=== PATIENT | female | born 1945 | race Caucasian/White ===

== ENCOUNTER 2016-09-01 14:15 | Outpatient (CLI) | payer OTHER ==
[2016-06-13 18:00] VITALS: BMI 19.4
--- NOTE | 2016-09-01 17:07 | CT ---
EXAM: CT chest without contrast HISTORY: History of cough and abnormal chest x-ray COMPARISON: Chest x-ray 06/19/[address] chest 06/15/2016 TECHNIQUE: Serial axial images of the chest were obtained from the lung apices to the upper abdomen without contrast. These were viewed in multiple planes. FINDINGS: The thyroid is diffusely low in attenuation and enlarged The visualized vessels demonstr ate significant atherosclerotic disease without aneurysm or stenosis. Pulmonary arteries are enlarg ed The heart mildly enlarged without effusion. There are scattered nonenlarged mediastinal and alvaro r lymph nodes. There is no pneumothorax. There is scattered moderate emphysematous disease. There is airway thick ening and ground-glass consolidation noted in the right lower lobe. This has minimally worsened in comparison to prior exam. Minimal airway thickening is noted in the left lower lobe. There is no e ffusion identified. Airways are otherwise patent. There are old healed rib fracture is unchanged from prior. The osseous structures demonstrate worse asael compression deformity at T11 with stable T10 compression deformity. T7 and T8 compression defo rmities are stable. No discrete new compression fracture is identified. Old healed manubrial fractu re is identified. Soft tissues in the upper abdomen on this limited evaluation demonstrate an IVC fi lter with moderate atherosclerotic disease. IMPRESSION: 1. Worsening airway thickening and ground-glass consolidation in the right lower lobe when compared to prior exam may represent acute on chronic small airways inflammation/infection and concern for d eveloping pneumonia. 2. No change in emphysema with stable cardiomegaly and atherosclerotic disease. 3. Pulmonary arteries are enlarged suggestive of a component pulmonary channel hypertension. 4. The thyroid is diffusely enlarged. 5. Multiple compression fractures of the spine and old healed rib fractures and manubrium fracture are present with minimal change noted in the compression deformity at T11.
== END 2016-09-01 14:16 | disposition home or self-care (01) ==
LOC: RAD 14:15
PROVIDERS: ATTEND General Practice
DX: R93.8 Abnormal findings on diagnostic imaging of other specified body structures (principal)

== ENCOUNTER 2016-09-14 13:00 | Outpatient (CLI) ==
[2016-06-13 18:00] VITALS: BMI 19.4
[2016-09-14 13:56] LABS: BASOPHILS % (AUTO) 1.5 % (0.0-3.0); HEMOGLOBIN 7.1 g/dl (12.0-16.0); LYMPHOCYTES # (AUTO) 0.4 K/uL (0.60-3.4); LYMPHOCYTES % (AUTO) 19.9 (10.0-50.0); MEAN CORPUSCULAR HEMOGLOBIN 34.3 pg (27.0-31.0); MONOCYTES # (AUTO) 0.1 K/uL (0.4-2.0); NEUTROPHILS # (AUTO) 1.5 K/ul (2.0-6.9); NEUTROPHILS % (AUTO) 73.6; PLATELET COUNT 113 10^3/uL (140-440); RED BLOOD COUNT 2.07 10^6/ul (4.20-5.40); WHITE BLOOD COUNT 2.01 K/ul (4.6-10.2)
--- NOTE | 2016-09-14 13:57 | DI ---
EXAM: Chest two view, frontal and lateral views. HISTORY: Bronchitis. COMPARISON: 09/01/2016. FINDINGS: The heart size is enlarged. Atherosclerotic calcifications present. There is no pulmona ry vascular congestion. The lungs are clear with improved aeration at the lung bases. No pleural e ffusion or pneumothorax is seen. No acute osseous abnormality identified. Old right-sided rib frac tures noted. Multilevel thoracic spine vertebral compression deformities noted. IMPRESSION: No acute cardiopulmonary process.
--- NOTE | 2016-09-14 14:00 | DI ---
EXAM: Radiographs, left hip HISTORY: Left hip pain. COMPARISON: Pelvic CT 06/13/2016. Radiograph 03/22/2015. TECHNIQUE: Two views. FINDINGS: Intramedullary nail present in the left femur. Hardware appears intact. No acute fractu re or dislocation identified. Joint spaces are maintained. Extensive atherosclerotic calcification s are present. IMPRESSION: No acute abnormality of the left hip..
[2016-09-14 14:08] LABS: HEMATOCRIT 20.9 % (37.0-47.0)
[2016-09-14 14:28] LABS: ALANINE AMINOTRANSFERASE < 6 U/L (12-78); ALBUMIN 3.6 g/dL (3.4-5.0); ALBUMIN/GLOBULIN RATIO 1.09; ALKALINE PHOSPHATASE 100 U/L (53-141); ANION GAP 14.4; ASPARTATE AMINO TRANSFERASE 11 U/L (15-37); BILIRUBIN,TOTAL 1.02 mg/dL (0.00-1.20); BLOOD UREA NITROGEN 10 mg/dL (7-18); BUN/CREATININE RATIO 15.62; CALCIUM 9.6 mg/dL (8.2-10.2); CARBON DIOXIDE 23 mmol/L (23-31); CHLORIDE 102 mmol/L (98-107); CHOL/HDL RATIO 3.1 (4.5-5.5); CHOLESTEROL 159 mg/dL (0-200); CREATININE 0.64 mg/dL (0.60-1.30); GLUCOSE 129 mg/dL (82-115); HDL CHOLESTEROL 52 mg/dL (35-80); POTASSIUM 4.4 mmol/L (3.5-5.10); SODIUM 135 mmol/L (136-145); TOTAL PROTEIN 6.9 g/dL (5.8-8.1); TRIGLYCERIDES 74 mg/dL (30-150); VLDL CHOLESTEROL 15 mg/dL (2-30)
== END 2016-09-14 13:01 | disposition home or self-care (01) ==
LOC: RAD 13:00
PROVIDERS: ATTEND Emergency Medicine
DX: E78.5 Hyperlipidemia, unspecified (principal); I10 Essential (primary) hypertension; K21.9 Gastro-esophageal reflux disease without esophagitis; J40 Bronchitis, not specified as acute or chronic; M25.552 Pain in left hip
CPT/HCPCS: 36415; 80053; 80061; 84443; 85025

== ENCOUNTER 2016-09-27 14:58 | Outpatient (CLI) | payer OTHER ==
[2016-06-13 18:00] VITALS: BMI 19.4
[2016-09-27 15:24] LABS: IMMATURE RETIC FRACTION 18.1; RETICULOCYTE % 4.79 %
[2016-09-27 15:25] LABS: BILIRUBIN,URINE Negative (NEGATIVE); KETONES,URINE Negative (NEGATIVE); LEUKOCYTE ESTERASE ,URINE 1+ (NEGATIVE); NITRITE,URINE Positive (NEGATIVE); PH,URINE 8.5 (5-9); PROTEIN,URINE Negative (NEGATIVE); URINE, BLOOD Trace-intact (NEGATIVE)
[2016-09-27 15:28] LABS: ADD URINE MICROSCOPIC YES
[2016-09-27 15:29] LABS: BACTERIA,URINE 3+ (NOT PRESENT)
[2016-09-27 15:57] LABS: FERRITIN 163.67 ng/mL (4.63-204.00)
== END 2016-09-27 14:59 | disposition home or self-care (01) ==
LOC: LAB 14:58
PROVIDERS: ATTEND Emergency Medicine
DX: R35.0 Frequency of micturition (principal); D50.0 Iron deficiency anemia secondary to blood loss (chronic); I10 Essential (primary) hypertension
CPT/HCPCS: 36415; 81001; 82607; 82728; 83540; 83550; 84466; 85045; 87086; 87186

== ENCOUNTER 2016-10-10 14:29 | Outpatient (CLI) ==
[2016-06-13 18:00] VITALS: BMI 19.4
== END 2016-10-10 14:30 | disposition home or self-care (01) ==
LOC: LAB 14:29
PROVIDERS: ATTEND Nurse Practitioner Family
DX: N39.0 Urinary tract infection, site not specified (principal)
CPT/HCPCS: 81001

== ENCOUNTER 2016-10-11 09:14 | Outpatient (CLI) ==
[2016-06-13 18:00] VITALS: BMI 19.4
[2016-10-11 09:28] LABS: BILIRUBIN,URINE Negative (NEGATIVE); KETONES,URINE Negative (NEGATIVE); LEUKOCYTE ESTERASE ,URINE 1+ (NEGATIVE); NITRITE,URINE Negative (NEGATIVE); PROTEIN,URINE Negative (NEGATIVE); URINE, BLOOD Trace-intact (NEGATIVE)
[2016-10-11 10:01] LABS: ADD URINE MICROSCOPIC YES
[2016-10-11 10:03] LABS: BACTERIA,URINE TRACE (NOT PRESENT)
== END 2016-10-11 09:15 | disposition home or self-care (01) ==
LOC: LAB 09:14
PROVIDERS: ATTEND Nurse Practitioner Family
DX: N39.0 Urinary tract infection, site not specified (principal)
CPT/HCPCS: 81001

== ENCOUNTER 2016-10-12 17:09 | Outpatient (CLI) ==
[2016-10-13 14:22] VITALS: BMI 18.8
== END 2016-10-12 17:10 ==
LOC: AMBL 17:09
PROVIDERS: ATTEND Emergency Medicine
DX: R06.2 Wheezing (principal); R09.02 Hypoxemia; J44.9 Chronic obstructive pulmonary disease, unspecified; Z99.81 Dependence on supplemental oxygen

== ENCOUNTER 2016-10-13 05:22 | Outpatient (CLI) ==
[2016-10-13 14:22] VITALS: BMI 18.8
== END 2016-10-13 05:23 ==
LOC: AMBL 05:22
PROVIDERS: ATTEND Internal Medicine Geriatric Medicine
DX: R06.02 Shortness of breath (principal); F41.9 Anxiety disorder, unspecified; R00.0 Tachycardia, unspecified; J44.9 Chronic obstructive pulmonary disease, unspecified; I10 Essential (primary) hypertension; Z99.81 Dependence on supplemental oxygen

== ENCOUNTER 2016-10-13 05:32 | Inpatient (IN) | payer OTHER ==
--- NOTE | 2016-10-13 06:21 | ED.PDOC ---
General Stated Complaint: Patient is a 71 year old female who comes to the ER BY ambulance with after her oxyugen tubbing was shortened she cannot reach everything while using her walker. She also thinks that her oxygen fell off at night and felt short of breath hence called 911. Time Seen by Physician: 06:18 Mode of Arrival: Ambulance Information Source: Patient Exam Limitations: No limitations Nursing and Triage Documentation Reviewed and Agree: Yes <SADE LORENZ - Last Filed: 10/13/16 07:23> <HENRIQUE FOLEY - Last Filed: 10/13/16 14:34> ED Provider: Dr. HENRIQUE FOLEY (SADE LORENZ) (HENRIQUE FOLEY) Chief Complaint: Shortness of Air Review of Systems - Review Of Systems Constitutional: Reports: No symptoms Respiratory: Reports: Cough, Short of air, Wheezing Cardiac: Reports: No symptoms Neurological: Reports: Anxiety All Other Systems: Reviewed and Negative <SADE LORENZ - Last Filed: 10/13/16 07:23> Past Medical History - Past Medical History Previously Healthy: No Endocrine: Reports: None Cardiovascular: Reports: CAD, Hypertension, A-Fib, DVT (bilateral- left leg improved quickly, right leg swollen until last week of February 2016) Respiratory: Reports: COPD, Pneumonia Hematological: Reports: None Gastrointestinal: Reports: GERD, Other (BOWEL RESECTION 12/25/15, IVC filter) Genitourinary: Reports: None Neuro/Psych: Reports: Anxiety Musculoskeletal: Reports: Other (T 11-12 COMPRESSION FX) Cancer: Reports: None Last Menstrual Period: post menopausal Other Pertinent Past Medical History: POST OP SEPSIS WITH WOUND VAC.has IVC umbrella emilia - Surgical History General Surgical History: Reports: Orthopedic, Back Surgery (T 11-12 COMPRESSION FX,), Other (bowel surgery with post op infection and wound vac( removed end of february 2016)), Unknown - Family History Family History: Reports: Unknown - Social History Smoking Status: Former smoker Hx Substance Use: No Alcohol Screening: None - Immunizations Tetanus Shot up to Date: No (pt is unsure when had last one) <SADE LORENZ - Last Filed: 10/13/16 07:23> Physical Exam - Physical Exam Appearance: Ill-appearing, Thin Ill-appearing: Moderate Neck: Supple Respiratory: Breath sounds diminished, Wheezes Cardiovascular: Tachycardia GI/: Soft Musculoskeletal: Normal strength, ROM intact, No edema, No calf tenderness Skin: Warm, Dry, Normal color Neurological: Sensation intact Psychiatric: Anxious <SADE LORENZ - Last Filed: 10/13/16 07:23> Interpretation - Radiology Interpretation Radiology Interpretation By: Radiologist Radiology Results: No acute changes Exam Interpreted: Portable CXR Xray Comments: No acute process - Adult Educator Time of Adult Educator Interpretation: 06:48 - EKG Interpretation Rate: Normal Rhythm: Sinus Ectopy: None ST Segment: Normal Interpretation: AV disassociagtion Acceleraqted Junctional rhythm <SADE LORENZ - Last Filed: 10/13/16 07:23> Re-Evaluation - Re-Evaluation Time of Re-Evaluation: 07:05 Status: Unchanged Vital Signs Stable: Yes Appearance: NAD (Visited briefly; NAD, speaking full sentences) Skin: Warm and Dry Neuro: Alert and Oriented X3 <HENRIQUE FOLEY - Last Filed: 10/13/16 14:34> Physician Notification - Case Discussed Endorsed To/Discussed With: Dr Foley Time of Discussion: 07:07 <SADE LORENZ - Last Filed: 10/13/16 07:23> - Case Discussed Physician Notified: Dr. Reyes Time of Notification: 08:35 (Anemia W/U; T&C 2 U; possible transfer) Physician Notified: Dr. Andrew/Hospitalist [facility] Time of Notification: 10:40 (Declined tranasfer) <HENRIQUE FOLEY - Last Filed: 10/13/16 14:34> Critical Care Note - Critical Care Note Total Time (mins): 45 <HENRIQUE FOLEY - Last Filed: 10/13/16 14:34> Course - Course Hematology/Chemistry: 10/13/16 06:40 10/13/16 06:40 <SADE LORENZ - Last Filed: 10/13/16 07:23> - Course Hematology/Chemistry: 10/13/16 06:40 10/13/16 06:40 <HENRIQUE FOLEY - Last Filed: 10/13/16 14:34> - Course Orders, Labs, Meds: Lab Review 10/13/16 10/13/16 10/13/16 06:38 06:40 06:43 WBC 2.58 L RBC 1.71 L Hgb 6.0 L Hct 17.8 L* MCV 104.1 H MCH 35.1 H MCHC 33.7 RDW Coeff of Maribeth 16.2 H Plt Count 44 L Neut % (Auto) Dental Manager Reticulocyte % (Auto) 2.87 Neutrophils % (Manual) 34.0 L Band Neutrophils % 3.0 Lymphocytes % (Manual) 34.0 Monocytes % (Manual) 5.0 Metamyelocytes % 3.0 H Myelocytes % 19.0 H Promyelocytes % 2.0 H Absolute Retic 0.0497 Retic Hgb Equivalent 35.4 Puncture Site R radial O2 Saturation 97.0 ABG pH 7.451 H ABG pCO2 29.7 L ABG pO2 81.0 L ABG HCO3 20.7 L ABG Total CO2 22 ABG Base Excess -3 L Chris Test + O2 Delivery Device Nc Oxygen Liter Flow 2.00 FiO2 % 28.0 Sodium 134 L Potassium 3.7 Chloride 103 Carbon Dioxide 23 Anion Gap 11.7 BUN 4 L Creatinine 0.52 L Estimated GFR (MDRD) 116.00 BUN/Creatinine Ratio 7.69 Glucose 102 Lactic Acid 11.3 Calcium 8.6 Iron 43 L TIBC 260 % Saturation 17 Unsat Iron Binding 217 Ferritin 274.58 H Total Bilirubin 1.19 AST 7 L ALT < 6 L Alkaline Phosphatase 90 Total Protein 6.1 Albumin 3.5 Globulin 2.6 Albumin/Globulin Ratio 1.35 Vitamin B12 > 2000 H Folate 8.3 Procalcitonin < 0.05 Stl Occult Blood (IFOB) Stool Occult Blood #2 Stool Occult Blood #3 Blood Type Antibody Screen Crossmatch ([facility]) 10/13/16 10/13/16 08:45 10:00 WBC RBC Hgb Hct MCV MCH MCHC RDW Coeff of Maribeth Plt Count Neut % (Auto) Reticulocyte % (Auto) Neutrophils % (Manual) Band Neutrophils % Lymphocytes % (Manual) Monocytes % (Manual) Metamyelocytes % Myelocytes % Promyelocytes % Absolute Retic Retic Hgb Equivalent Puncture Site O2 Saturation ABG pH ABG pCO2 ABG pO2 ABG HCO3 ABG Total CO2 ABG Base Excess Chris Test O2 Delivery Device Oxygen Liter Flow FiO2 % Sodium Potassium Chloride Carbon Dioxide Anion Gap BUN Creatinine Estimated GFR (MDRD) BUN/Creatinine Ratio Glucose Lactic Acid Calcium Iron TIBC % Saturation Unsat Iron Binding Ferritin Total Bilirubin AST ALT Alkaline Phosphatase Total Protein Albumin Globulin Albumin/Globulin Ratio Vitamin B12 Folate Procalcitonin Stl Occult Blood (IFOB) Negative Stool Occult Blood #2 No specimen received Stool Occult Blood #3 No specimen received Blood Type A POSITIVE Antibody Screen Negative Crossmatch ([facility]) See Detail Orders Category Date Time Status ADMIT PATIENT INPATIENT .TO [facility] (MONITORED BED) ADMISSION 10/13/16 10: 53 Active ABG DRAW REQUEST Stat CARDIO 10/13/16 06:38 Completed EKG-(ED ONLY) Stat CARDIO 10/13/16 06:38 Completed NEBULIZER TREATMENT Stat CARDIO 10/13/16 06:38 Completed OXYGEN Routine CARDIO 10/13/16 10:54 Active ACTIVITY .BR with BRP CARE 10/13/16 10:53 Active ACTIVITY .Complete BR CARE 10/13/16 10:53 Active INTAKE & OUTPUT Q8HR CARE 10/13/16 10:53 Active IV ACCESS ONCE CARE 10/13/16 06:16 Active ORDER H&H 1HR POST TRANSFUSION ONCE CARE 10/13/16 10:50 Active PRBC LEUKOREDUCED ONCE CARE 10/13/16 10:50 Active TELEMETRY MONITORING TELE CARE 10/13/16 10:57 Active VITAL SIGNS Q4HR CARE 10/13/16 10:53 Active REGULAR DIET DIETARY 10/13/16 Lunch Ordered ED APPLY O2 .ONCE EMERGENCY 10/13/16 06:16 Active ED RAIMANN MACHINE OPERATOR APPLIED .ONCE EMERGENCY 10/13/16 06:16 Active ED VITAL SIGNS EMERGENCY 10/13/16 06:16 Active ABG Stat LAB 10/13/16 06:38 Completed BLOOD CULTURE Stat LAB 10/13/16 06:40 Received CBC W/ AUTO DIFF DAILY@0600 LAB 10/14/16 06:00 Ordered CBC W/ AUTO DIFF DAILY@0600 LAB 10/15/16 06:00 Ordered CBC W/ AUTO DIFF DAILY@0600 LAB 10/16/16 06:00 Ordered CBC W/ AUTO DIFF DAILY@0600 LAB 10/17/16 06:00 Ordered CBC W/ AUTO DIFF DAILY@0600 LAB 10/18/16 06:00 Ordered CBC W/ AUTO DIFF DAILY@0600 LAB 10/19/16 06:00 Ordered CBC W/ AUTO DIFF DAILY@0600 LAB 10/20/16 06:00 Ordered CBC W/ AUTO DIFF DAILY@0600 LAB 10/21/16 06:00 Ordered CBC W/ AUTO DIFF DAILY@0600 LAB 10/22/16 06:00 Ordered CBC W/ AUTO DIFF DAILY@0600 LAB 10/23/16 06:00 Ordered CBC W/ AUTO DIFF DAILY@0600 LAB 10/24/16 06:00 Ordered CBC W/ AUTO DIFF DAILY@0600 LAB 10/25/16 06:00 Ordered CBC W/ AUTO DIFF DAILY@0600 LAB 10/26/16 06:00 Ordered CBC W/ AUTO DIFF DAILY@0600 LAB 10/27/16 06:00 Ordered CBC W/ AUTO DIFF DAILY@0600 LAB 10/28/16 06:00 Ordered CBC W/ AUTO DIFF DAILY@0600 LAB 10/29/16 06:00 Ordered CBC W/ AUTO DIFF DAILY@0600 LAB 10/30/16 06:00 Ordered CBC W/ AUTO DIFF DAILY@0600 LAB 10/31/16 06:00 Ordered CBC W/ AUTO DIFF DAILY@0600 LAB 11/01/16 06:00 Ordered CBC W/ AUTO DIFF DAILY@0600 LAB 11/02/16 06:00 Ordered CBC W/ AUTO DIFF Stat LAB 10/13/16 06:40 Completed COMPREHENSIVE METABOLIC PANEL DAILY@0600 LAB 10/14/16 06:00 Ordered COMPREHENSIVE METABOLIC PANEL DAILY@0600 LAB 10/15/16 06:00 Ordered COMPREHENSIVE METABOLIC PANEL DAILY@0600 LAB 10/16/16 06:00 Ordered COMPREHENSIVE METABOLIC PANEL DAILY@0600 LAB 10/17/16 06:00 Ordered COMPREHENSIVE METABOLIC PANEL DAILY@0600 LAB 10/18/16 06:00 Ordered COMPREHENSIVE METABOLIC PANEL DAILY@0600 LAB 10/19/16 06:00 Ordered COMPREHENSIVE METABOLIC PANEL DAILY@0600 LAB 10/20/16 06:00 Ordered COMPREHENSIVE METABOLIC PANEL DAILY@0600 LAB 10/21/16 06:00 Ordered COMPREHENSIVE METABOLIC PANEL DAILY@0600 LAB 10/22/16 06:00 Ordered COMPREHENSIVE METABOLIC PANEL DAILY@0600 LAB 10/23/16 06:00 Ordered COMPREHENSIVE METABOLIC PANEL DAILY@0600 LAB 10/24/16 06:00 Ordered COMPREHENSIVE METABOLIC PANEL DAILY@0600 LAB 10/25/16 06:00 Ordered COMPREHENSIVE METABOLIC PANEL DAILY@0600 LAB 10/26/16 06:00 Ordered COMPREHENSIVE METABOLIC PANEL DAILY@0600 LAB 10/27/16 06:00 Ordered COMPREHENSIVE METABOLIC PANEL DAILY@0600 LAB 10/28/16 06:00 Ordered COMPREHENSIVE METABOLIC PANEL DAILY@0600 LAB 10/29/16 06:00 Ordered COMPREHENSIVE METABOLIC PANEL DAILY@0600 LAB 10/30/16 06:00 Ordered COMPREHENSIVE METABOLIC PANEL DAILY@0600 LAB 10/31/16 06:00 Ordered COMPREHENSIVE METABOLIC PANEL DAILY@0600 LAB 11/01/16 06:00 Ordered COMPREHENSIVE METABOLIC PANEL DAILY@0600 LAB 11/02/16 06:00 Ordered COMPREHENSIVE METABOLIC PANEL Stat LAB 10/13/16 06:40 Completed FERRITIN Routine LAB 10/13/16 06:43 Completed FOLATE Routine LAB 10/13/16 06:43 Completed IRON AND TIBC Routine LAB 10/13/16 06:43 Completed LACTIC ACID Stat LAB 10/13/16 06:40 Completed MANUAL DIFFERENTIAL Stat LAB 10/13/16 06:40 Completed OCCULT BLOOD, STOOL Stat LAB 10/13/16 08:45 Completed PROCALCITONIN Stat LAB 10/13/16 06:40 Completed Packed Red Blood Cells [PACKED CELLS] Stat LAB 10/13/16 10:00 Results RETIC COUNT Routine LAB 10/13/16 06:43 Completed TRANSFERRIN Routine LAB 10/13/16 06:43 Received TYPE AND SCREEN Stat LAB 10/13/16 10:00 Results VITAMIN B12 Routine LAB 10/13/16 06:43 Completed Acetaminophen [Tylenol] MEDS 10/13/16 11:00 Active 650 mg PO Q4HR PRN Albuterol Sulfate 0.083% Neb [Albuterol 0.083% Neb] MEDS 10/13/16 11:00 Active 1 vial NEB RTQ8H PRN Alendronate Sodium [Fosamax] MEDS 10/14/16 06:30 Active 70 mg PO Sa@0630 Aspirin [Aspirin EC] MEDS 10/14/16 08:00 Active 81 mg PO DAILYWM Atorvastatin Calcium [Lipitor] MEDS 10/13/16 11:00 Active 10 mg PO DAILY Bisacodyl [Dulcolax] MEDS 10/13/16 11:00 Active 10 mg RC DAILY PRN Budesonide/Formoterol Fumarate [Symbicort 160-4.5 Mcg MEDS 10/13/16 21:00 Active Inhaler] 2 puff IH BID Clonazepam [Klonopin] MEDS 10/13/16 11:30 Active 0.5 mg PO BID Furosemide [Lasix] MEDS 10/13/16 10:53 Discontinued 40 mg IVP ONCE STA Hydrocodone Bit/Acetaminophen [[place] 5-325] MEDS 10/13/16 11:07 Active 1 tab PO Q6HR PRN Ipratropium/Albuterol Neb [Duoneb] MEDS 10/13/16 06:40 Discontinued 1 vial NEB .STK-MED ONE Ipratropium/Albuterol Neb [Duoneb] MEDS 10/13/16 06:38 Discontinued 1 vial NEB ONCE STA Magnesium Hydroxide [Milk of Magnesia] MEDS 10/13/16 11:07 Active 30 ml PO DAILY PRN Methylprednisolone Sod Succ/Pf [Solu-Medrol 125 mg] MEDS 10/13/16 06:29 Discontinued 125 mg IVP ONCE STA Metoprolol Tartrate [Lopressor] MEDS 10/13/16 11:30 Active 25 mg PO BID Sodium Chloride 0.9% [Sodium Chloride] 1,000 ml MEDS 10/13/16 11:00 Active IV 75 mls/hr RESUSCITATION STATUS Routine OTHERS 10/13/16 10:53 Ordered CHEST, 1V AP ONLY Stat RADS 10/13/16 06:[address] ABDOMEN/PELVIS WO CONTRAST Stat RADS 10/13/16 08:33 Completed Medications Generic Name Dose Route Start Last Admin Trade Name Freq PRN Reason Stop Dose Admin Acetaminophen 650 mg 10/13/16 11:00 10/13/16 12:30 Tylenol PO 650 mg Q4HR PRN Administration Mild Pain Acetaminophen/Hydrocodone Bitart 1 tab 10/13/16 11:07 [place] 5-325 PO Q6HR PRN Severe Pain Albuterol Sulfate 1 vial 10/13/16 11:00 Albuterol 0.083% Neb NEB RTQ8H PRN Asthma Alendronate Sodium 70 mg 10/14/16 06:30 Fosamax PO Sa@0630 SMOOTH Aspirin 81 mg 10/14/16 08:00 Aspirin Ec PO DAILYWM SMOOTH Atorvastatin Calcium 10 mg 10/13/16 11:00 Lipitor PO DAILY SMOOTH Bisacodyl 10 mg 10/13/16 11:00 Dulcolax RC DAILY PRN CONSTIPATION Budesonide/Formoterol Fumarate 2 puff 10/13/16 21:00 Symbicort 160-4.5 Mcg Inhaler IH BID SMOOTH Clonazepam 0.5 mg 10/13/16 11:30 Klonopin PO BID SMOOTH Cyclobenzaprine HCl 5 mg 10/13/16 11:41 Flexeril PO Q8HR PRN MUSCLE SPASMS Sodium Chloride 1,000 mls @ 75 mls/hr 10/13/16 11:00 Sodium Chloride IV .[id number] SMOOTH Magnesium Hydroxide 30 ml 10/13/16 11:07 Milk Of Magnesia PO DAILY PRN Constipation Metoprolol Tartrate 25 mg 10/13/16 11:30 Lopressor PO BID SMOOTH Potassium Chloride 10 meq 10/14/16 09:00 Micro-K Cap PO DAILY SMOOTH Discontinued Medications Generic Name Dose Route Start Last Admin Trade Name Freq PRN Reason Stop Dose Admin Acetaminophen 650 mg 10/13/16 12:27 Tylenol Liquid 650 Mg/20.3 Ml PO 10/13/16 12:28 ONCE STA Albuterol/Ipratropium 1 vial 10/13/16 06:38 10/13/16 07:01 Duoneb NEB 10/13/16 06:39 Not Given ONCE STA Furosemide 40 mg 10/13/16 10:53 Lasix IVP 10/13/16 10:54 ONCE STA Methylprednisolone Sodium Succinate 125 mg 10/13/16 06:29 10/13/16 09:09 Solu-Medrol 125 Mg IVP 10/13/16 06:30 Not Given ONCE STA (SADE LORENZ) Vital Signs: Temp Pulse Resp BP Pulse Ox 10/13/16 11:11 97 H 24 148/76 H 93 L 10/13/16 10:07 94 H 20 165/67 H 95 10/13/16 09:20 103 H 26 H 165/63 H 97 10/13/16 08:10 113 H 26 H 171/71 H 97 10/13/16 07:16 95 H 26 H 169/91 H 95 10/13/16 06:19 96 H 20 169/91 H 95 10/13/16 05:33 100 F H 93 H 22 156/69 H 96 (SADE LORENZ) (HENRIQUE FOLEY) Departure <SADE LORENZ - Last Filed: 10/13/16 07:23> - Departure Time of Disposition: 11:11 Pt referred to PMD for follow-up: Yes (Followl instructions on discharge from hospital) <HENRIQUE FOLEY - Last Filed: 10/13/16 14:34> - Departure Disposition: ADMITTED INPATIENT Discharge Problem: Anemia Qualifiers: Anemia type: unspecified type Qualifier Code: (D64.9) Anemia, unspecified Condition: Stable Allergies/Adverse Reactions: Allergies tuberculin, purified protein deriva [From Tubersol] Adverse Reaction (Verified 06/13/16 10:29) latex Adverse Reaction (Uncoded 09/12/13 15:58) Home Medications: Ambulatory Orders Acetaminophen [Tylenol] 650 mg PO Q4HR PRN 01/04/16 Clonazepam 0.5 mg PO BID 01/04/16 Magnesium Hydroxide [Milk of Magnesia] 30 ml PO DAILY PRN 01/04/16 Albuterol Sulfate 0.083% Neb [Albuterol 0.083% Neb] 1 vial NEB RTQ8H PRN Alendronate Sodium [Fosamax] 70 mg PO WEEKLY FOSAMAX 03/17/16 Aspirin [Adult Low Dose Aspirin EC] 81 mg PO DAILY 03/26/16 Potassium Chloride [K-Dur] 10 meq PO DAILY #30 tab 05/26/16 Bisacodyl [Dulcolax] 1 supp RC PRN PRN 06/13/16
[2016-10-13] MEDS ORDERED: SOLU-MEDROL 125 MG IVP STA (06:29)
[2016-10-13] MEDS ORDERED: DUONEB NEB STA (06:38)
[2016-10-13] MEDS ORDERED: DUONEB NEB ONE (06:40)
[2016-10-13 06:51] LABS: MEAN CORPUSCULAR HEMOGLOBIN 35.1 pg (27.0-31.0); MEAN CORPUSCULAR HGB CONC 33.7 (31.8-35.4); MEAN CORPUSCULAR VOLUME 104.1 fl (81.0-99.0); PLATELET COUNT 44 10^3/uL (140-440); RED BLOOD COUNT 1.71 10^6/ul (4.20-5.40)
[2016-10-13 06:53] LABS: ABG BASE EXCESS -3 (-2.0-2.0); ABG HCO3 20.7 (22.0-26.0); ABG PCO2 29.7 mmHg (35-45); ABG PH 7.451 (7.35-7.45); ABG TCO2 22 (22.0-28.0)
[2016-10-13 06:56] LABS: HEMATOCRIT 17.8 % (37.0-47.0)
[2016-10-13 06:58] LABS: ANISOCYTOSIS NOT PRESENT (NOT PRESENT)
[2016-10-13 07:08] LABS: ALANINE AMINOTRANSFERASE < 6 U/L (12-78); ALBUMIN 3.5 g/dL (3.4-5.0); ALBUMIN/GLOBULIN RATIO 1.35; ALKALINE PHOSPHATASE 90 U/L (53-141); ANION GAP 11.7; ASPARTATE AMINO TRANSFERASE 7 U/L (15-37); BILIRUBIN,TOTAL 1.19 mg/dL (0.00-1.20); BLOOD UREA NITROGEN 4 mg/dL (7-18); BUN/CREATININE RATIO 7.69; CALCIUM 8.6 mg/dL (8.2-10.2); CARBON DIOXIDE 23 mmol/L (23-31); CHLORIDE 103 mmol/L (98-107); CREATININE 0.52 mg/dL (0.60-1.30); GLUCOSE 102 mg/dL (82-115); POTASSIUM 3.7 mmol/L (3.5-5.10); SODIUM 134 mmol/L (136-145); TOTAL PROTEIN 6.1 g/dL (5.8-8.1)
--- NOTE | 2016-10-13 07:17 | DI ---
EXAM: CHEST FRONTAL VIEW HISTORY: Shortness of breath. COMPARISON: 09/14/2016 FINDINGS: Heart size upper limit normal, stable. Moderately severe atherosclerotic disease is agai n noted. Chronic-appearing lung changes with no definite consolidated pneumonia. There is no activ e congestive heart failure, pneumothorax or pleural fluid. IVC filter incidentally noted. IMPRESSION: No obvious acute cardiopulmonary process.
[2016-10-13 08:44] LABS: IMMATURE RETIC FRACTION 21.1; RETICULOCYTE % 2.87 %
[2016-10-13 09:29] LABS: FERRITIN 274.58 ng/mL (4.63-204.00); FOLATE 8.3 ng/mL (3.1-20.5)
[2016-10-13 09:31] LABS: WHITE BLOOD COUNT 2.58 K/ul (4.6-10.2)
--- NOTE | 2016-10-13 09:34 | CT ---
EXAM: CT ABDOMEN AND PELVIS HISTORY: Abdominal pain, anemia TECHNIQUE: CT abdomen and pelvis without intravenous contrast. Images were reconstructed using 5 m m section thickness. Reformations were prepared. COMPARISON: 06/13/2016 FINDINGS: Diagnostic limitations exist without including contrast enhanced images. No obvious focal hepatic o r splenic lesions. Gallbladder and pancreas within normal limits. Adrenal glands within normal guallpa its. Mild prominence of the right renal collecting system similar to that previously seen without o bvious etiology. Severe atherosclerotic disease. IVC filter in place. No gastric distension. Mild to moderate distal colon diverticulosis. Normal bowel gas pattern. Uri nary bladder within normal limits. Uterus unremarkable. There is no ascites. There is a paraumbilical hernia with a small loop of small bowel extending into the hernia sac. Ther e is no evidence of bowel strangulation. Hernia neck is 1.5 cm. This hernia appears new since previ ous exam. The bones appear demineralized. There are multiple vertebral body compression fractures o f the thoracolumbar junction which appear slightly more noticeable since previous exam. Increasing s clerosis of L4 inferior endplate and L5 vertebral body with no significant loss of height at this le bryan. Lung bases reveal discoid consolidation posteriorly on the right. No pneumoperitoneum. IMPRESSION: 1. Mild right renal collecting system dilatation similar to previously seen and of indeterminate et iology and clinical significance. 2. Severe atherosclerotic disease. 3. Distal colon diverticulosis. 4. New small para umbilical hernia with a small loop of bowel within the hernia sac with out rosemary ulation. Nonobstructive bowel gas pattern. 5. Demineralization of the bones with worsening vertebral body compression deformities thoracolumba r junction. Development of sclerosis at the L4/L5 level of indeterminate etiology, possibly related to stress factors. Less likely pathologic disease such as neoplasia.
[2016-10-13 09:39] LABS: OCCULT BLOOD INTERNAL QC 1 INTERNAL QC VALID; OCCULT BLOOD SAMPLE 1 NEGATIVE (NEGATIVE)
[2016-10-13] MEDS ORDERED: LASIX IVP STA ×3 (10:53→21:50)
[2016-10-13] MEDS ORDERED: DULCOLAX RC PRN (11:00)
[2016-10-13] MEDS ORDERED: ALBUTEROL 0.083% NEB NEB PRN (11:00)
[2016-10-13] MEDS ORDERED: NON-FORMULARY MEDICATION (Cyclobenzaprine Hcl [Cyclobenzaprine Hcl] 5 MG) PO PRN ×22 (11:04)
[2016-10-13] MEDS ORDERED: MILK OF MAGNESIA PO PRN (11:07)
[2016-10-13] MEDS ORDERED: NITROFURANTOIN MACROCRYSTAL 100 MG PO SCH (11:15)
[2016-10-13 11:17] LABS: OCCULT BLOOD INTERNAL QC 2 INTERNAL QC VALID; OCCULT BLOOD INTERNAL QC 3 INTERNAL QC VALID; OCCULT BLOOD SAMPLE 2 NO SPECIMEN RECEIVED (NEGATIVE); OCCULT BLOOD SAMPLE 3 NO SPECIMEN RECEIVED (NEGATIVE)
[2016-10-13] MEDS ORDERED: K-DUR PO SCH (11:30)
[2016-10-13] MEDS ORDERED: FLEXERIL PO PRN (11:41)
[2016-10-13] MEDS ORDERED: TYLENOL LIQUID 650 MG/20.3 ML PO STA (12:27)
[2016-10-13] MEDS: TYLENOL PO PRN ×2 (12:30→21:19)
[2016-10-13] MEDS: KLONOPIN PO SCH ×2 (14:00→20:19)
[2016-10-13 14:22] VITALS: BMI 18.8
[2016-10-13] MEDS: LIPITOR PO SCH (16:13)
[2016-10-13] MEDS: LOPRESSOR PO SCH ×2 (16:14→20:16)
[2016-10-13] MEDS: LASIX IVP STA ×2 (18:49→21:57)
[2016-10-13] MEDS ORDERED: ZESTRIL PO STA (19:23)
[2016-10-13] MEDS: SYMBICORT 160-4.5 MCG INHALER IH SCH (20:16)
[2016-10-13] MEDS: SODIUM CHLORIDE 1,000 ML IV SCH (21:44)
[2016-10-13 22:53] LABS: HEMATOCRIT 30.9 % (37.0-47.0); HEMOGLOBIN 10.8 g/dl (12.0-16.0)
[2016-10-14] MEDS: NORCO 5-325 PO PRN ×3 (01:45→18:57)
[2016-10-14] MEDS ORDERED: FOSAMAX PO SCH (06:30)
[2016-10-14] MEDS ORDERED: NON-FORMULARY MEDICATION (Lisinopril [Lisinopril] 20 MG) PO SCH ×22 (09:00)
[2016-10-14 09:13] LABS: BASOPHILS % (AUTO) 1.1 % (0.0-3.0); HEMATOCRIT 31.6 % (37.0-47.0); HEMOGLOBIN 11.1 g/dl (12.0-16.0); LYMPHOCYTES % (AUTO) 34.9 (10.0-50.0); MEAN CORPUSCULAR HEMOGLOBIN 32.2 pg (27.0-31.0); MEAN CORPUSCULAR HGB CONC 35.1 (31.8-35.4); MEAN CORPUSCULAR VOLUME 91.6 fl (81.0-99.0); MONOCYTES # (AUTO) 0.3 K/uL (0.4-2.0); MONOCYTES % (AUTO) 12.1 (0-10); NEUTROPHILS # (AUTO) 1.4 K/ul (2.0-6.9); NEUTROPHILS % (AUTO) 51.9; PLATELET COUNT 40 10^3/uL (140-440); RED BLOOD COUNT 3.45 10^6/ul (4.20-5.40); WHITE BLOOD COUNT 2.72 K/ul (4.6-10.2)
[2016-10-14] MEDS: SODIUM CHLORIDE 1,000 ML IV SCH ×2 (09:22→13:30)
[2016-10-14 09:32] LABS: ALANINE AMINOTRANSFERASE < 6 U/L (12-78); ALBUMIN 3.6 g/dL (3.4-5.0); ALBUMIN/GLOBULIN RATIO 1.24; ALKALINE PHOSPHATASE 96 U/L (53-141); ANION GAP 14.3; ASPARTATE AMINO TRANSFERASE 9 U/L (15-37); BILIRUBIN,TOTAL 3.59 mg/dL (0.00-1.20); BLOOD UREA NITROGEN 10 mg/dL (7-18); CALCIUM 8.6 mg/dL (8.2-10.2); CARBON DIOXIDE 24 mmol/L (23-31); CHLORIDE 101 mmol/L (98-107); CREATININE 0.49 mg/dL (0.60-1.30); GLUCOSE 99 mg/dL (82-115); POTASSIUM 3.3 mmol/L (3.5-5.10); SODIUM 136 mmol/L (136-145); TOTAL PROTEIN 6.5 g/dL (5.8-8.1)
[2016-10-14] MEDS: LOPRESSOR PO SCH ×2 (09:40→20:17)
[2016-10-14] MEDS: ZESTRIL PO SCH (09:40)
[2016-10-14] MEDS: SYMBICORT 160-4.5 MCG INHALER IH SCH ×2 (09:40→20:17)
[2016-10-14] MEDS: MICRO-K CAP PO SCH (09:41)
[2016-10-14] MEDS: ASPIRIN EC PO SCH (09:42)
[2016-10-14] MEDS: LIPITOR PO SCH (09:44)
[2016-10-14] MEDS: KLONOPIN PO SCH (09:45)
[2016-10-14] MEDS ORDERED: DECADRON 4 MG/ML SDV IVP STA (10:25)
[2016-10-14] MEDS ORDERED: LASIX IVP STA (10:26)
[2016-10-14] MEDS ORDERED: OCEAN NASAL SPRAY NAS PRN (10:31)
[2016-10-14] MEDS: DUONEB NEB SCH ×3 (12:32→23:00)
[2016-10-15] MEDS: SODIUM CHLORIDE 1,000 ML IV SCH ×5 (00:50→17:14)
[2016-10-15] MEDS: NORCO 5-325 PO PRN ×2 (00:56→11:27)
[2016-10-15] MEDS: DUONEB NEB SCH ×4 (04:44→22:58)
[2016-10-15] MEDS: SYMBICORT 160-4.5 MCG INHALER IH SCH ×2 (08:23→20:12)
[2016-10-15] MEDS: LOPRESSOR PO SCH ×2 (08:24→20:12)
[2016-10-15] MEDS: MICRO-K CAP PO SCH (08:24)
[2016-10-15] MEDS: ZESTRIL PO SCH (08:24)
[2016-10-15] MEDS: ASPIRIN EC PO SCH (08:24)
[2016-10-15] MEDS: LIPITOR PO SCH (08:24)
[2016-10-15 10:42] LABS: ALBUMIN 3.2 g/dL (3.4-5.0); ALBUMIN/GLOBULIN RATIO 1.23; ANION GAP 16.8; BILIRUBIN,TOTAL 1.26 mg/dL (0.00-1.20); BUN/CREATININE RATIO 13.72; CALCIUM 8.6 mg/dL (8.2-10.2); CREATININE 0.51 mg/dL (0.60-1.30); POTASSIUM 3.8 mmol/L (3.5-5.10); TOTAL PROTEIN 5.8 g/dL (5.8-8.1)
[2016-10-15 11:04] LABS: BASOPHILS % (AUTO) 0.9 % (0.0-3.0); HEMATOCRIT 25.5 % (37.0-47.0); LYMPHOCYTES # (AUTO) 0.9 K/uL (0.60-3.4); LYMPHOCYTES % (AUTO) 26.9 (10.0-50.0); MEAN CORPUSCULAR HEMOGLOBIN 32.4 pg (27.0-31.0); MEAN CORPUSCULAR HGB CONC 35.3 (31.8-35.4); MEAN CORPUSCULAR VOLUME 91.7 fl (81.0-99.0); MONOCYTES # (AUTO) 0.4 K/uL (0.4-2.0); MONOCYTES % (AUTO) 12.8 (0-10); NEUTROPHILS # (AUTO) 1.9 K/ul (2.0-6.9); NEUTROPHILS % (AUTO) 59.4; PLATELET COUNT 41 10^3/uL (140-440); RED BLOOD COUNT 2.78 10^6/ul (4.20-5.40); WHITE BLOOD COUNT 3.27 K/ul (4.6-10.2)
[2016-10-15] MEDS: PROTONIX PO SCH (17:10)
[2016-10-16 04:56] LABS: HEMATOCRIT 26.6 % (37.0-47.0); HEMOGLOBIN 9.2 g/dl (12.0-16.0); MEAN CORPUSCULAR HEMOGLOBIN 32.5 pg (27.0-31.0); MEAN CORPUSCULAR HGB CONC 34.6 (31.8-35.4); RED BLOOD COUNT 2.83 10^6/ul (4.20-5.40); WHITE BLOOD COUNT 3.25 K/ul (4.6-10.2)
[2016-10-16 04:59] LABS: ANISOCYTOSIS NOT PRESENT (NOT PRESENT)
[2016-10-16] MEDS: DUONEB NEB SCH ×4 (05:10→23:26)
[2016-10-16 05:13] LABS: ALBUMIN 3.2 g/dL (3.4-5.0); ALBUMIN/GLOBULIN RATIO 1.45; ANION GAP 11.9; BILIRUBIN,TOTAL 0.97 mg/dL (0.00-1.20); BUN/CREATININE RATIO 15.68; CALCIUM 8.7 mg/dL (8.2-10.2); CREATININE 0.51 mg/dL (0.60-1.30); POTASSIUM 3.9 mmol/L (3.5-5.10); TOTAL PROTEIN 5.4 g/dL (5.8-8.1)
[2016-10-16 05:14] LABS: PLATELET COUNT 42 10^3/uL (140-440)
[2016-10-16] MEDS: PROTONIX PO SCH ×2 (05:38→18:03)
[2016-10-16] MEDS ORDERED: DECADRON 4 MG/ML SDV IM STA (08:14)
[2016-10-16] MEDS: SYMBICORT 160-4.5 MCG INHALER IH SCH ×2 (09:19→20:33)
[2016-10-16] MEDS: MICRO-K CAP PO SCH (09:20)
[2016-10-16] MEDS: ZESTRIL PO SCH (09:20)
[2016-10-16] MEDS: ASPIRIN EC PO SCH (09:20)
[2016-10-16] MEDS: LOPRESSOR PO SCH ×2 (09:20→20:33)
[2016-10-16] MEDS: LIPITOR PO SCH (09:20)
[2016-10-16] MEDS: MUCINEX PO SCH ×2 (09:21→20:33)
--- NOTE | 2016-10-16 11:15 | PCM.PROG ---
Attending Provider: ATTENDING PROVIDER: Dr. NOAH SANDOVAL DATE OF SERVICE: 10/16/16 SUBJECTIVE: This 71 year old WHITE/ F was hospitalized 10/13/16. The patient is sleeping but awakes easily to verbal stimuli. The patient states, "I hurt everywhere." She has cough and congestion with rattling in the chest. Per nurse Vannessa, the patient refused breathing treatments. Hemoglobin stable after 3 units. Hemocult is negative. The patient complains of feeling weak and tired. REVIEW OF SYSTEMS: CONSTITUTIONAL: Weakness and tiredness. No fever, no chills. ENDOCRINE: No weight loss or weight gain. HEENT: No sinus drainage, no sore throat. CVS: No angina symptoms. No CHF symptoms. No palpitations. No atypical chest pain for CAD. No shortness of breath. RESPIRATORY: No cough, no hemoptysis. GI: No melena. No abdominal pain. No nausea, no vomiting. : No hematuria. No polyuria. SKIN: No rash. No wounds. MUSCULOSKELETAL: Generalized aches and pains. WASTE BALER: No blackout, no dizziness. No headache. No double vision. PSYCHIATRIC: Not anxious; no depression. No suicidal thoughts. No homicidal thoughts. PHYSICAL EXAMINATION: GENERAL: Cachetic appearing lady lying in bed in no distress. VITAL SIGNS: Temperature 97.6 F, Pulse 68, Respiratory Rate 20, BP 136/78, Pulse Ox 99% HEENT: Normocephalic, atraumatic. Mucosa is dry, pallor positive. No scleral icterus. NECK: No JVD, no carotid bruit. No lymphadenopathy. CARDIAC: S1, S2, no S3. Systolic murmur. LUNGS: Decreased air entry. Rattlling heard ABDOMEN: Soft, non-tender. Bowel sounds active. No rigidity, guarding or CVA tenderness. EXTREMITIES: No clubbing, cyanosis or edema. NEUROLOGIC: Awake, alert and oriented x3. LYMPHATIC: No palpable lymph nodes SKIN: Not dry. Intact. MUSCULOSKELETAL: No joint swelling. LAB REVIEW: 10/16/16 04:48 10/16/16 04:48 10/16/16 04:48: WBC 3.25 L, RBC 2.83 L, Hgb 9.2 L, Hct 26.6 L, MCV 94.0, MCH 32.5 H, MCHC 34.6, RDW Coeff of Maribeth 18.4 H, Plt Count 42 L, Neutrophils % ( Manual) 42.0 L, Lymphocytes % (Manual) 55.0 H, Monocytes % (Manual) 2.0, Basophils % (Manual) 1.0, Sodium 137, Potassium 3.9, Chloride 109 H, Carbon Dioxide 20 L, Anion Gap 11.9, BUN 8, Creatinine 0.51 L, Estimated GFR (MDRD) 119.00, BUN/Creatinine Ratio 15.68, Glucose 89, Calcium 8.7, Total Bilirubin 0.97, AST 8 L, ALT 6 L, Alkaline Phosphatase 78, Total Protein 5.4 L, Albumin 3.2 L, Globulin 2.2, Albumin/Globulin Ratio 1.45 10/15/16 10:54: WBC 3.27 L, RBC 2.78 L, Hgb 9.0 L, Hct 25.5 L D, MCV 91.7, MCH 32.4 H, MCHC 35.3, RDW Coeff of Maribeth 18.1 H, Plt Count 41 L, Immature Gran % ( Auto) 0.0, Neut % (Auto) 59.4, Lymph % (Auto) 26.9, [place] % (Auto) 12.8 H, Eos % (Auto) 0.0, Baso % (Auto) 0.9, Immature Gran # (Auto) 0.0, Neut # 1.9 L, Lymph # 0.9, [place] # 0.4, Eos # 0.0, Baso # 0.0 10/15/16 10:20: Sodium 134 L, Potassium 3.8, Chloride 104, Carbon Dioxide 17 L, Anion Gap 16.8, BUN 7, Creatinine 0.51 L, Estimated GFR (MDRD) 119.00, BUN/ Creatinine Ratio 13.72, Glucose 124 H, Calcium 8.6, Total Bilirubin 1.26 H D, AST 8 L, ALT 6 L, Alkaline Phosphatase 88, Total Protein 5.8, Albumin 3.2 L, Globulin 2.6, Albumin/Globulin Ratio 1.23 ASSESSMENT: 1. Anemia needing transfusion, 3 units 2. Upper respiratory infection 3. COPD 4. CHF 5. Aortic stenosis 6. Osteoarthritis/osteoporosis 7. Compression deformity of the lumbar spine 8. Pancytopenia 9. Thrombocytopenia 10. History of valvular repair PLAN: 1. Breathing treatments, Duonebs 2. Out of bed to chair. 3. Hold Lovenox secondary to anemia. 4. 1 cc Decadron. 5. Mucinex 600 mg b.i.d. Plan and coordination of the patient's care discussed in the presence of Vaudeville Actor and nurse. CONDITION: Stable SCRIBED BY: KHADRA WANG Doughnut Fryer scribed while in presence of service performed by Dr. NOAH SANDOVAL on 10/16/16 ([id number])
--- NOTE | 2016-10-16 13:42 | PN ---
DATE OF SERVICE: 10/15/16 SUBJECTIVE: The patient was pneumonia, had three units of blood transfusion hgb went up to 11 and came down to 9.0 today. Still having some shortness of breath, complains about it and she did get an extra Lasix yesterday night. Was not able to sleep. REVIEW OF SYSTEMS: CONSTITUTIONAL: No fever, no chills. HEENT: Normal. ENDOCRINE: No weight gain, no weight loss. CVS: No angina symptoms. No CHF symptoms. No palpitations. No atypical chest pain for CAD. No shortness of breath. No PND, no orthopnea. RESPIRATORY: No cough, no hemoptysis. GI: No nausea, no vomiting. No abdominal pain. : No hematuria. No polyuria. MUSCULOSKELETAL:. No joint swelling. PSYCHIATRIC: Not anxious. No depression. No suicidal thoughts. No homicidal thoughts. SKIN: Intact. No rash. PHYSICAL EXAMINATION: V/S: Blood pressure 114/72, respiratory rate 20, heart rate 80 and temperature 98.0. HEENT: Normocephalic, atraumatic. Ears, eyes, nose and throat normal. Mucosa dry. Pallor positive. No icterus NECK: Supple. No JVD, no carotid bruit. No lymphadenopathy. LUNGS: Bilateral entry is decreased and basilar crackles are present. No rales or rhonchi. HEART: S1, S2 normal. No S3. No murmur, gallop or regurgitation. ABDOMEN: Soft, nontender. Bowel sounds active. No rigidity. No rebound or guarding. No CVA tenderness. EXTREMITIES: No clubbing, cyanosis or pedal edema. MUSCULOSKELETAL: No joint swelling. NEUROLOGIC: Awake, alert, oriented times three. No focal deficit. LYMPHATIC: No lymph nodes palpable. SKIN: Intact. LABS: Hgb 9, hct 25.5, WBC 3.27, plt count 41, Sodium 134. potassium 3.8. chloride 104 , Bicarb 17, BUN 7, creatinine 0.51 and glucose 124. ASSESSMENT: 1. COPD exacerbation 2. Bronchitis 3. Anemia, symptomatic needing 3 units of the blood transfusion 4. Osteoarthritis/ Osteoporosis 5. Hypertension 6. Dyslipidemia 7. Anxiety disorder 8. COPD on oxygen dependant PLAN: 1. DUO NEBS 2. Decadron 1cc 3. I&O's 4. Out of bed to chair with the help but patient is refusing to sit as patient is feeling more weak and tired. TIME SPENT: More than 30 minutes MTDD
--- NOTE | 2016-10-16 14:05 | PN ---
DATE OF SERVICE: 10/14/16 SUBJECTIVE: The patient had three units blood transfusion, was some short of breath Lasix was given 20mg which did help her. The patient was started on the breathing treatments still complains about being congested. Had another temp of 102 after admission. REVIEW OF SYSTEMS: CONSTITUTIONAL: No fever, no chills. HEENT: Normal. ENDOCRINE: No weight gain, no weight loss. CVS: No angina symptoms. No CHF symptoms. No palpitations. No atypical chest pain for CAD. No shortness of breath. No PND, no orthopnea. RESPIRATORY: No cough, no hemoptysis. GI: No nausea, no vomiting. No abdominal pain. : No hematuria. No polyuria. MUSCULOSKELETAL:. No joint swelling. PSYCHIATRIC: Not anxious. No depression. No suicidal thoughts. No homicidal thoughts. SKIN: Intact. No rash. PHYSICAL EXAMINATION: V/S: Blood pressure 109/66, respiratory rate 24, heart rate 96 and temperature 96.0. HEENT: Normocephalic, atraumatic. Ears, eyes, nose and throat normal. Mucosa dry. Pallor positive No icterus. NECK: Supple. No JVD, no carotid bruit. No lymphadenopathy. LUNGS: Bilateral entry is decreased and basilar crackles positive. No rales or rhonchi. HEART: S1, S2 normal. No S3. Systolic murmur, gallop or regurgitation. ABDOMEN: Soft, nontender. Bowel sounds active. No rigidity. No rebound or guarding. No CVA tenderness. EXTREMITIES: No clubbing, cyanosis or pedal edema. MUSCULOSKELETAL: No joint swelling. Grossly intact. NEUROLOGIC: Awake, alert, oriented times three. No focal deficit. LYMPHATIC: No lymph nodes palpable. SKIN: Intact. LABS: Hgb 11.1 after three units, plt count 40, sodium 36, potassium 3.3, chloride 101 , Bicarb 24, BUN 10 and creatinine 0.49. ASSESSMENT: 1. COPD exacerbation secondary to the bronchitis 2. Symptomatic anemia, needing three units of the blood transfusion 3. Anemia of chronic disease 4. Pancytopenia 5. Aortic stenosis 6. Hypertension 7. Congestive heart failure 8. Dyslipidemia 9. Osteoporosis PLAN: 1. Continue the breath treatment and Decadron 2. IV fluids decrease to 40ml per hour Will follow the patient in daily rounds. TIME SPENT: More than 30 minutes MTDD
--- NOTE | 2016-10-16 14:44 | HP ---
DATE OF SERVICE: 10/13/16 REASON FOR HOSPITALIZATION: Shortness of breath HISTORY OF PRESENT ILLNESS: The patient is a 71 year old female who is on home oxygen. Her oxygen tubing was not correct and was no feeling good. She can not reach every time so she was getting more short of breath, cough and congested. Seen initially by Dr. Smith and then by Dr. Stewart in the emergency room. Hgb was 6.0, ABG showed the pH 7.54 on pCO 2 29.7, pO2 81, Sodium 134 and potassium 3.7. At that time CT of the abdomen and pelvis was done which did not show any acute problems. Dr. Bennett tried to transfer the patient to the [facility] in review of the anemia but they refused taking the patient. Her hgb was dropped from the 7.2 June to the 6.0 this time. Not in acute distress and at that time the patient was admitted to the [facility]. Type and screened for possible transfusion. REVIEW OF SYSTEMS: CONSTITUTIONAL: No night sweats. Weakness and tiredness. No fever or chills. HEENT: Eyes: No visual changes. No eye pain. No eye discharge. ENT: No runny nose. No epistaxis. No sinus pain. No sore throat. No odynophagia. No ear pain. No congestion. RESPIRATORY: Cough and congestion. No hemoptysis. CARDIOVASCULAR: No angina symptoms. No CHF symptoms. No atypical chest pain for CAD. No palpitations. Shortness of breath. GASTROINTESTINAL: No abdominal pain. No nausea or vomiting. No diarrhea or constipation. No hematemesis. No hematochezia. GENITOURINARY: No urgency. No frequency. No dysuria. No hematuria. No obstructive symptoms. No discharge. No pain. No significant abnormal bleeding. MUSCULOSKELETAL: No musculoskeletal pain. No joint swelling. No arthritis. NEUROLOGICAL: No headache. No neck pain. No syncope. No seizures. No dizziness. PSYCHIATRIC: Anxious and depression. No suicidal thoughts. No homicidal thoughts. SKIN: No rash. No lesions. No wounds. ENDOCRINE: No unexplained weight loss. No weight gain. HEMATOLOGIC/LYMPHATIC: No anemia. No purpura. No petechiae. No prolonged or excessive bleeding. No palpable lymph nodes. PERSONAL/FAMILY/SOCIAL HISTORY: The patient continues to smoke one pack a day, lives at home sometimes her daughter helps her. Family history is significant for the Thyroid disease. PAST MEDICAL/SURGICAL PROBLEMS: CAD Hypertension Aortic stenosis COPD GERD Osteoarthritis DJD Spine Diverticulosis Anemia Osteoporosis with compression deformities Hypothyroidism Depression Anxiety Right arm-5 Cataract surgeries Abdominal surgery Fell February 2010 in house and had to have therapy after that MEDICATIONS: Tylenol Milk of Magnesia Albuterol Fosamax Aspirin Potassium Dulcolax Cyclobenzaprine Hydrocodone Metoprolol Atorvastatin Budesonide Nitrofurantoin Lisinopril ALLERGIES: Clonazepam Tuberculin Purified protein deriva Latex PHYSICAL EXAMINATION: VITAL SIGNS: Blood pressure 156/69, respiratory rate 22, heart rate 93 and temperature 100 HEENT: Head normocephalic, atraumatic. Eyes: Extraocular muscles are intact. Pupils are equal, round and reactive to light and accommodation. Ears: No lesions. Nose appeared normal. Throat: No exudate or erythema. Mucosa dry. Pallor positive. No icterus. NECK: Supple. No JVD, no carotid bruit. No lymphadenopathy or thyromegaly. LUNGS: Decreased with basilar crackles. Percussion note normal. Chest symmetrical. HEART: S1, S2, no S3. Systolic murmur positive. No cyanosis or clubbing. No ascites. Pulses: Dorsalis pedis and posterior tibial pulses +1 to +2 both sides. ABDOMEN: Soft. Nontender. Bowel sounds active. No CVA tenderness. No mass felt. EXTREMITIES: No edema. Full range of motion of all extremities, equal. NEUROLOGIC: No focal deficit. Cranial nerves II through XII are grossly intact. No headache, no double vision or headache. SKIN: Not dry. Intact. Turgor - normal. LYMPHATIC: No palpable lymph nodes/no lymphedema. MUSCULOSKELETAL: Normal joints with no swelling. Muscle tone is normal. LABS: Hgb 6.0, hct 17.8, plt count 44, WBC 2.58, Sodium 134, potassium 3.7, chloride 103, bicarb 23, BUN 4 and creatinine 0.52. First set of cardiac are negative. ASSESSMENT: 1. Symptomatic Anemia 2. COPD exacerbation secondary to the bronchitis 3. Afebrile illness 4. Hypertension 5. Dyslipidemia 6. Aortic stenosis 7. COPD oxygen dependant 8. Osteoarthritis 9. DJD spine 10.Anxiety disorder PLAN: 1. Admit patient to the regular floor 2. CBC and CMP today and daily 3. Cardiac enzymes and Troponin 4. Type and screen three units and transfuse three units 5. Lasix 20mg IV push in between the units 6. Anemia profile 7. Stool for occult blood test 8. Protonix 40mg PO twice a day 9. Breathing treatments 10.DUO NEBS Will follow the patient in daily rounds. The patient was seen and examined in the emergency room. TIME SPENT: More than 60 minutes. JALIL
[2016-10-16] MEDS: NORCO 5-325 PO PRN (18:03)
[2016-10-16] MEDS: SODIUM CHLORIDE 1,000 ML IV SCH (18:08)
[2016-10-17] MEDS: DUONEB NEB SCH ×4 (05:15→23:32)
[2016-10-17 05:18] LABS: BASOPHILS % (AUTO) 1.2 % (0.0-3.0); HEMATOCRIT 25.9 % (37.0-47.0); HEMOGLOBIN 8.8 g/dl (12.0-16.0); LYMPHOCYTES # (AUTO) 0.7 K/uL (0.60-3.4); LYMPHOCYTES % (AUTO) 29.9 (10.0-50.0); MEAN CORPUSCULAR HEMOGLOBIN 32.4 pg (27.0-31.0); MEAN CORPUSCULAR VOLUME 95.2 fl (81.0-99.0); MONOCYTES # (AUTO) 0.3 K/uL (0.4-2.0); MONOCYTES % (AUTO) 13.5 (0-10); NEUTROPHILS # (AUTO) 1.4 K/ul (2.0-6.9); NEUTROPHILS % (AUTO) 55.4; RED BLOOD COUNT 2.72 10^6/ul (4.20-5.40); WHITE BLOOD COUNT 2.44 K/ul (4.6-10.2)
[2016-10-17] MEDS: PROTONIX PO SCH ×2 (05:30→16:45)
[2016-10-17 05:34] LABS: PLATELET COUNT 40 10^3/uL (140-440)
[2016-10-17 05:37] LABS: ALANINE AMINOTRANSFERASE < 6 U/L (12-78); ALBUMIN 3.1 g/dL (3.4-5.0); ALBUMIN/GLOBULIN RATIO 1.41; ALKALINE PHOSPHATASE 74 U/L (53-141); ASPARTATE AMINO TRANSFERASE 8 U/L (15-37); BILIRUBIN,TOTAL 0.95 mg/dL (0.00-1.20); BLOOD UREA NITROGEN 9 mg/dL (7-18); BUN/CREATININE RATIO 16.66; CALCIUM 8.6 mg/dL (8.2-10.2); CARBON DIOXIDE 21 mmol/L (23-31); CHLORIDE 105 mmol/L (98-107); CREATININE 0.54 mg/dL (0.60-1.30); GLUCOSE 104 mg/dL (82-115); SODIUM 133 mmol/L (136-145); TOTAL PROTEIN 5.3 g/dL (5.8-8.1)
[2016-10-17] MEDS: LIPITOR PO SCH (09:23)
[2016-10-17] MEDS: LOPRESSOR PO SCH ×2 (09:23→20:14)
[2016-10-17] MEDS: ZESTRIL PO SCH (09:23)
[2016-10-17] MEDS: MUCINEX PO SCH ×2 (09:23→20:14)
[2016-10-17] MEDS: ASPIRIN EC PO SCH (09:23)
[2016-10-17] MEDS: MICRO-K CAP PO SCH (09:23)
[2016-10-17] MEDS: SYMBICORT 160-4.5 MCG INHALER IH SCH ×2 (09:24→20:14)
[2016-10-17] MEDS: SODIUM CHLORIDE 1,000 ML IV SCH (09:24)
[2016-10-17 11:48] LABS: OCCULT BLOOD INTERNAL QC 1 INTERNAL QC VALID; OCCULT BLOOD SAMPLE 1 POSITIVE (NEGATIVE)
[2016-10-17] MEDS ORDERED: LOPRESSOR PO STA (13:03)
--- NOTE | 2016-10-17 13:21 | PCM.PROG ---
Attending Provider: ATTENDING PROVIDER: Dr. NOAH SANDOVAL DATE OF SERVICE: 10/17/16 SUBJECTIVE: This 71 year old WHITE/ F was hospitalized 10/13/16. The patient is sitting up in the chair eating breakfast. Discussed with the patient plan of care for today. Discussed low hemoglobin and hematocrit and will get stool for occult blood. REVIEW OF SYSTEMS: CONSTITUTIONAL: No fever, no chills. ENDOCRINE: No weight loss or weight gain. HEENT: No sinus drainage, no sore throat. CVS: No angina symptoms. No CHF symptoms. No palpitations. No atypical chest pain for CAD. No shortness of breath at rest. RESPIRATORY: No cough, no hemoptysis. GI: No melena. No abdominal pain. No nausea, no vomiting. : Frequency of urination. No hematuria. SKIN: No rash. No wounds. MUSCULOSKELETAL: Generalized aches and pains. BURR GRINDER: No blackout, no dizziness. No headache. No double vision. PSYCHIATRIC: Not anxious; no depression. No suicidal thoughts. No homicidal thoughts. PHYSICAL EXAMINATION: GENERAL: Sitting in chair. in no distress. VITAL SIGNS: Temperature 97.9 F, Pulse 70, Respiratory Rate 24, BP 173/77, Pulse Ox 98% HEENT: Normocephalic, atraumatic. Mucosa is dry, pallor positive. NECK: No JVP, no carotid bruit. No lymphadenopathy. CARDIAC: S1, S2, no S3. No murmur, gallop or regurgitation. LUNGS: Clear to auscultation. ABDOMEN: Soft, non-tender. Bowel sounds active. No rigidity, guarding or CVA tenderness. EXTREMITIES: No clubbing, cyanosis or edema. NEUROLOGIC: Awake, alert and oriented x3. LYMPHATIC: No palpable lymph nodes SKIN: Not dry. Intact. MUSCULOSKELETAL: No joint swelling. LAB REVIEW: 10/17/16 05:00 10/17/16 05:00 10/17/16 05:00: WBC 2.44 L, RBC 2.72 L, Hgb 8.8 L, Hct 25.9 L, MCV 95.2, MCH 32.4 H, MCHC 34.0, RDW Coeff of Maribeth 17.4 H, Plt Count 40 L, Immature Gran % ( Auto) 0.0, Neut % (Auto) 55.4, Lymph % (Auto) 29.9, [place] % (Auto) 13.5 H, Eos % (Auto) 0.0, Baso % (Auto) 1.2, Immature Gran # (Auto) 0.0, Neut # 1.4 L, Lymph # 0.7, [place] # 0.3 L, Eos # 0.0, Baso # 0.0, Sodium 133 L, Potassium 4.0, Chloride 105, Carbon Dioxide 21 L, Anion Gap 11.0, BUN 9, Creatinine 0.54 L, Estimated GFR (MDRD) 111.00, BUN/Creatinine Ratio 16.66, Glucose 104, Calcium 8.6, Total Bilirubin 0.95, AST 8 L, ALT < 6 L, Alkaline Phosphatase 74, Total Protein 5.3 L, Albumin 3.1 L, Globulin 2.2, Albumin/Globulin Ratio 1.41 ASSESSMENT: 1. Anemia recenved 3 units on the , still low at 8.8 2. Upper respiratory infection 3. COPD 4. CHF 5. Aortic stenosis 6. Osteoarthritis/osteoporosis 7. Compression deformity of the lumbar spine 8. Pancytopenia 9. Thrombocytopenia 10. History of valvular repair PLAN: 1. UA 2. Stool for occult positive stool 3. Stop IV fluids Plan and coordination of the patient's care discussed in the presence of Mental Health Aides Teacher and nurse. CONDITION: Stable SCRIBED BY: KHADRA WANG Software Developer Mid Level scribed while in presence of service performed by Dr. NOAH SANDOVAL on 10/17/16 ([id number])
[2016-10-17 15:00] LABS: BILIRUBIN,URINE Negative (NEGATIVE); KETONES,URINE Negative (NEGATIVE); LEUKOCYTE ESTERASE ,URINE Negative (NEGATIVE); NITRITE,URINE Negative (NEGATIVE); PROTEIN,URINE Negative (NEGATIVE); URINE, BLOOD 1+ (NEGATIVE)
[2016-10-17 15:05] LABS: ADD URINE MICROSCOPIC YES
[2016-10-17 15:06] LABS: OCCULT BLOOD INTERNAL QC 2 INTERNAL QC VALID; OCCULT BLOOD INTERNAL QC 3 INTERNAL QC VALID; OCCULT BLOOD SAMPLE 2 NO SPECIMEN RECEIVED (NEGATIVE); OCCULT BLOOD SAMPLE 3 NO SPECIMEN RECEIVED (NEGATIVE)
[2016-10-17] MEDS: NORCO 5-325 PO PRN (18:15)
[2016-10-18 05:10] LABS: BASOPHILS # (AUTO) 0.1 K/uL (0-0.2); BASOPHILS % (AUTO) 2.1 % (0.0-3.0); EOSINOPHILS % (AUTO) 0.3 % (0.0-7.0); HEMOGLOBIN 9.2 g/dl (12.0-16.0); IMMATURE GRANULOCYTE % (AUTO) 8.1 % (0.0-5.0); LYMPHOCYTES # (AUTO) 1.7 K/uL (0.60-3.4); LYMPHOCYTES % (AUTO) 43.1 (10.0-50.0); MEAN CORPUSCULAR HEMOGLOBIN 32.4 pg (27.0-31.0); MEAN CORPUSCULAR HGB CONC 34.1 (31.8-35.4); MEAN CORPUSCULAR VOLUME 95.1 fl (81.0-99.0); MONOCYTES # (AUTO) 0.5 K/uL (0.4-2.0); MONOCYTES % (AUTO) 12.3 (0-10); NEUTROPHILS # (AUTO) 1.3 K/ul (2.0-6.9); NEUTROPHILS % (AUTO) 34.1; RED BLOOD COUNT 2.84 10^6/ul (4.20-5.40); WHITE BLOOD COUNT 3.83 K/ul (4.6-10.2)
[2016-10-18 05:20] LABS: PLATELET COUNT 47 10^3/uL (140-440)
[2016-10-18 05:28] LABS: ALBUMIN/GLOBULIN RATIO 1.3; ANION GAP 10.8; BILIRUBIN,TOTAL 1.18 mg/dL (0.00-1.20); BUN/CREATININE RATIO 16.36; CALCIUM 8.7 mg/dL (8.2-10.2); CREATININE 0.55 mg/dL (0.60-1.30); POTASSIUM 3.8 mmol/L (3.5-5.10); TOTAL PROTEIN 5.3 g/dL (5.8-8.1)
[2016-10-18] MEDS: DUONEB NEB SCH ×2 (05:45→11:35)
[2016-10-18] MEDS: PROTONIX PO SCH (05:59)
[2016-10-18] MEDS: SYMBICORT 160-4.5 MCG INHALER IH SCH (08:55)
[2016-10-18] MEDS: ZESTRIL PO SCH (08:56)
[2016-10-18] MEDS: LIPITOR PO SCH (08:56)
[2016-10-18] MEDS: LOPRESSOR PO SCH (08:56)
[2016-10-18] MEDS: MUCINEX PO SCH (08:56)
[2016-10-18] MEDS: ASPIRIN EC PO SCH (08:57)
[2016-10-18] MEDS: MICRO-K CAP PO SCH ×2 (08:57→09:04)
--- NOTE | 2016-10-18 10:43 | PCM.PROG ---
Attending Provider: ATTENDING PROVIDER: Dr. NOAH SANDOVAL DATE OF SERVICE: 10/18/16 SUBJECTIVE: This 71 year old WHITE/ F was hospitalized 10/13/16. The patient complains of neck pain and is given Flexeril. The patient is noncompliant, refuses to sit up. Discussed intermediate placement with the patient and she refuses. Stool for occult blood was positive. Discussed getting GI evaluation as an outpatient. REVIEW OF SYSTEMS: CONSTITUTIONAL: No fever, no chills. ENDOCRINE: No weight loss or weight gain. HEENT: No sinus drainage, no sore throat. CVS: No angina symptoms. No CHF symptoms. No palpitations. No atypical chest pain for CAD. No shortness of breath. RESPIRATORY: No cough, no hemoptysis. GI: No melena. No abdominal pain. No nausea, no vomiting. : No hematuria. No polyuria. SKIN: No rash. No wounds. MUSCULOSKELETAL: Generalized aches and pains; paraspinal muscle tenderness. CTC OPERATOR: No blackout, no dizziness. No headache. No double vision. PSYCHIATRIC: Not anxious; no depression. No suicidal thoughts. No homicidal thoughts. PHYSICAL EXAMINATION: GENERAL: Lying in bed in no distress. VITAL SIGNS: Temperature 97.9 F, Pulse 67, Respiratory Rate 24, BP 181/78, Pulse Ox 95% HEENT: Normocephalic, atraumatic. Mucosa is dry, pallor positive. NECK: No JVP, no carotid bruit. No lymphadenopathy. CARDIAC: S1, S2, no S3. Systolic murmur. LUNGS: Decreased entry. Clear to auscultation. ABDOMEN: Soft, non-tender. Bowel sounds active. No rigidity, guarding or CVA tenderness. Back- paraspinal muscle tenderness. EXTREMITIES: No clubbing, cyanosis or edema. NEUROLOGIC: Awake, alert and oriented x3. LYMPHATIC: No palpable lymph nodes SKIN: Not dry. Intact. MUSCULOSKELETAL: No joint swelling. LAB REVIEW: 10/18/16 04:05 10/18/16 04:05 10/18/16 04:05: WBC 3.83 L, RBC 2.84 L, Hgb 9.2 L, Hct 27.0 L, MCV 95.1, MCH 32.4 H, MCHC 34.1, RDW Coeff of Maribeth 17.2 H, Plt Count 47 L, Immature Gran % ( Auto) 8.1 H, Neut % (Auto) 34.1, Lymph % (Auto) 43.1, [place] % (Auto) 12.3 H, Eos % (Auto) 0.3, Baso % (Auto) 2.1, Immature Gran # (Auto) 0.3, Neut # 1.3 L, Lymph # 1.7, [place] # 0.5, Eos # 0.0, Baso # 0.1, Sodium 133 L, Potassium 3.8, Chloride 103, Carbon Dioxide 23, Anion Gap 10.8, BUN 9, Creatinine 0.55 L, Estimated GFR (MDRD) 109.00, BUN/Creatinine Ratio 16.36, Glucose 89, Calcium 8.7 , Total Bilirubin 1.18, AST 7 L, ALT 7 L, Alkaline Phosphatase 67, Total Protein 5.3 L, Albumin 3.0 L, Globulin 2.3, Albumin/Globulin Ratio 1.30 10/17/16 14:43: Urine Color Yellow, Urine Clarity Clear, Urine pH 7.0, Ur Specific [place] 1.015, Urine Protein Negative, Urine Glucose (UA) Negative, Urine Ketones Negative, Urine Blood 1+, Urine Nitrite Negative, Urine Bilirubin Negative, Urine Urobilinogen 0.2, Ur Leukocyte Esterase Negative, Urine Microscopic RBC 5-10, Urine Microscopic WBC 0-2, Ur Squamous Epith Cells 2-5 10/17/16 10:40: Stl Occult Blood (IFOB) Positive, Stool Occult Blood #2 No specimen received, Stool Occult Blood #3 No specimen received ASSESSMENT: 1. Anemia, received 3 units on the 10th, still low at 8.8 2. Upper respiratory infection 3. COPD 4. CHF 5. Aortic stenosis 6. Osteoarthritis/osteoporosis 7. Compression deformity of the lumbar spine 8. Pancytopenia 9. Thrombocytopenia 10. History of valvular repair PLAN: 1. Iron pills 324 mg t.i.d. 2. Discontinue IV 3. GI evaluation for colonoscopy as outpatient 4. Gradual exercise 5. Activity as tolerated 6. Follow up in [facility] in one week 7. Will discuss discharge plan with daughter Martina 8. Discharge home Plan and coordination of the patient's care discussed in the presence of Title Examiner and nurse. CONDITION: Stable SCRIBED BY: KHADRA WANG Home And School Visitor scribed while in presence of service performed by Dr. NOAH SANDOVAL on 10/18/16 ([id number])
[2016-10-18] MEDS: NORCO 5-325 PO PRN (11:49)
[2016-10-18 14:17] VITALS: BP 160/80; TEMP 99
--- NOTE | 2016-10-19 12:01 | DS ---
DATE OF SERVICE: 10/18/16 FINAL DIAGNOSIS: 1. Anemia, needing blood transfusion three units hgb dropped to 8.8 again and 9.2 today 2. Upper respiratory infection 3. COPD 4. Congestive heart failure 5. Aortic stenosis 6. Osteoarthritis 7. Osteoporosis 8. Compression deformity of Lumbar spine 9. Osteopenia 10.Thrombocytopenia 11.History of GI surgery for volvulus repair DISCHARGE INSTRUCTIONS: Discharge the patient,as patient refused to get into the prison. Needs to get a followup with [facility] on the October 25 and [address] Ela Rios, Nurse Practitioner for Dr. Carmelita Valero for the GI evaluation for the anemia. Continue rest of the home medications. MEDICATIONS AT DISCHARGE: Tylenol Hydrocodone Cyclobenzaprine Albuterol Fosamax Aspirin Atorvastatin Dulcolax Ferrous sulfate Lisinopril Magnesium Metoprolol Protonix Potassium NEW PRESCRIPTIONS: Protonix 40mg twice a day Ferrous Sulfate 325mg twice a day DIET INSTRUCTIONS: Cardiac and healthy ACTIVITY: As much as tolerated SMOKING: Former Smoker DISEASE SPECIFIC EDUCATION: Anemia, need of iron pills been discussed The patient was adamant to go home and doesn't want to be going to the prison for the physical therapy and the rehabilitation. Discharge Plan and management plan was discussed with the patient's daughter, Martina. HOSPITAL COURSE: Haris Sorenson who is a 71 year old female came to the emergency room on 10/13/16 with weakness, tiredness and her shortness of breath and her oxygen pump was not working. Found to be having severe anemia. Hgb was 6.0 [address] at that time [address] of abdomen did not find any acute finding. ABG were done which showed the pH 7.451, pCO2 29.7, pO2 81. BUN 4, creatinine 0.52 and urine was negative. At that time she was admitted to hospital and type and cross matched and transfused three units. Lasix IV push was given in between the blood transfusion. The patient did not get any problem after the blood transfusion then started having some cough, congestion and shortness of breath. Extra Lasix was given and Decadron shot and the breathing treatments were given. With the given treatment she improved a lot. Saturations maintained around 95-98% with 2 liter nasal cannula. Blood pressure was some problem. The patient was febrile one episode but clinically the patient did not have any problems. As patient was doing clinically improved and refused the admission to the nursing the patient is discharged home. Strictly explained about taking the Protonix and Iron pills. She will be seen in the [facility] in one week and we will recheck to Potassium. The patient has followup with GI doctor Dr. Carmelita Valero as outpatient. JALIL
== END 2016-10-18 16:41 | disposition home or self-care (01) | DRG 812 ==
LOC: ED 05:32 → MEDSURG A 11:13
PROVIDERS: ADMIT Emergency Medicine; ATTEND Emergency Medicine
PROC: 30233N1 Transfusion of Nonautologous Red Blood Cells into Peripheral Vein, Percutaneous Approach (ICD-10-PCS; principal; 2016-10-13)
PROC: 30233N1 Transfusion of Nonautologous Red Blood Cells into Peripheral Vein, Percutaneous Approach (ICD-10-PCS; 2016-10-13)
PROC: 30233N1 Transfusion of Nonautologous Red Blood Cells into Peripheral Vein, Percutaneous Approach (ICD-10-PCS; 2016-10-13)
DX: D64.9 Anemia, unspecified (principal); D50.0 Iron deficiency anemia secondary to blood loss (chronic); R06.02 Shortness of breath; J06.9 Acute upper respiratory infection, unspecified; J44.9 Chronic obstructive pulmonary disease, unspecified; R50.9 Fever, unspecified; I50.9 Heart failure, unspecified; I10 Essential (primary) hypertension; I35.0 Nonrheumatic aortic (valve) stenosis; E78.5 Hyperlipidemia, unspecified; M54.2 Cervicalgia; R19.5 Other fecal abnormalities; M19.90 Unspecified osteoarthritis, unspecified site; M81.0 Age-related osteoporosis without current pathological fracture; M43.8X6 Other specified deforming dorsopathies, lumbar region; M85.80 Other specified disorders of bone density and structure, unspecified site; D69.6 Thrombocytopenia, unspecified; Z86.718 Personal history of other venous thrombosis and embolism; Z87.891 Personal history of nicotine dependence; Z99.81 Dependence on supplemental oxygen; Z79.899 Other long term (current) drug therapy; Z98.890 Other specified postprocedural states
CPT/HCPCS: 36415; 36430; 80053; 81001; 82272; 82607; 82728; 82746; 82803; 83540; 83550; 83605; 84145; 84466; 85007; 85014; 85018; 85025; 85045; 86850; 86900; 86922; 87040; 93005; 93010; 94640; 99223; 99233; 99239; 99285

== ENCOUNTER 2016-11-02 09:44 | Outpatient (CLI) ==
[2016-11-02 17:05] VITALS: BMI 18.2
== END 2016-11-02 09:45 | disposition home or self-care (01) ==
LOC: AMBL 09:44
PROVIDERS: ATTEND Emergency Medicine
DX: R10.84 Generalized abdominal pain (principal)

== ENCOUNTER 2016-11-02 09:54 | Inpatient (IN) ==
[2016-11-02] MEDS ORDERED: SODIUM CHLORIDE 1,000 ML IV STA (10:07)
[2016-11-02 10:29] LABS: BASOPHILS # (AUTO) 0.2 K/uL (0-0.2); BASOPHILS % (AUTO) 1.8 % (0.0-3.0); HEMATOCRIT 25.3 % (37.0-47.0); HEMOGLOBIN 9.1 g/dl (12.0-16.0); LYMPHOCYTES # (AUTO) 1.3 K/uL (0.60-3.4); LYMPHOCYTES % (AUTO) 12.9 (10.0-50.0); MEAN CORPUSCULAR HEMOGLOBIN 32.3 pg (27.0-31.0); MEAN CORPUSCULAR VOLUME 89.7 fl (81.0-99.0); MONOCYTES # (AUTO) 2.1 K/uL (0.4-2.0); MONOCYTES % (AUTO) 20.5 (0-10); NEUTROPHILS # (AUTO) 6.6 K/ul (2.0-6.9); NEUTROPHILS % (AUTO) 64.8; RED BLOOD COUNT 2.82 10^6/ul (4.20-5.40); WHITE BLOOD COUNT 10.24 K/ul (4.6-10.2)
[2016-11-02 10:40] LABS: H. PYLORI ANTIBODY NEGATIVE (NEGATIVE); H.PYLORI INTERNAL QC INTERNAL QC VALID
[2016-11-02 10:45] LABS: ALANINE AMINOTRANSFERASE 8 U/L (12-78); ALBUMIN/GLOBULIN RATIO 0.97; ALKALINE PHOSPHATASE 197 U/L (53-141); AMYLASE 8 U/L (25-115); ASPARTATE AMINO TRANSFERASE 13 U/L (15-37); BILIRUBIN,TOTAL 0.92 mg/dL (0.00-1.20); BLOOD UREA NITROGEN 6 mg/dL (7-18); CALCIUM 8.5 mg/dL (8.2-10.2); CARBON DIOXIDE 21 mmol/L (23-31); CHLORIDE 91 mmol/L (98-107); CREATININE 0.55 mg/dL (0.60-1.30); GLUCOSE 108 mg/dL (82-115); SODIUM 125 mmol/L (136-145); TOTAL PROTEIN 6.1 g/dL (5.8-8.1)
--- NOTE | 2016-11-02 10:50 | ED.PDOC ---
General ED Provider: Dr. DULCE MARIA BLACKWELL JR Chief Complaint: Abdominal Pain Stated Complaint: Pain across lower abd x 2 or 3 days. Pt reports no oral intake x 2 days. Said makes her "sick." No vomiting. Last BM 2 days ago. Abd pain comes et goes. Hx bowel resect 12/25/15[End]100.8 92 20 97% 193/94 8/10 Time Seen by Physician: 10:00 Mode of Arrival: Stretcher Information Source: Patient Exam Limitations: No limitations Primary Care Provider: RONAK ELIZALDE Nursing and Triage Documentation Reviewed and Agree: No Review of Systems - Review Of Systems Constitutional: Reports: Malaise, Weakness Eyes: Reports: No symptoms Ears, Nose, Mouth, Throat: Reports: No symptoms Respiratory: Reports: No symptoms Cardiac: Reports: No symptoms GI: Reports: Abdominal pain (RIGHT ANTERIOR) : Reports: Dysuria Musculoskeletal: Reports: No symptoms Skin: Reports: No symptoms Neurological: Reports: No symptoms Endocrine: Reports: No symptoms Hematologic/Lymphatic: Reports: No symptoms All Other Systems: Other Past Medical History - Past Medical History Previously Healthy: No Endocrine: Reports: None Cardiovascular: Reports: CAD, Hypertension, A-Fib, DVT (bilateral- left leg improved quickly, right leg swollen until last week of February 2016) Respiratory: Reports: COPD, Pneumonia Hematological: Reports: None Gastrointestinal: Reports: GERD, Other (BOWEL RESECTION 12/25/15, IVC filter) Genitourinary: Reports: None Neuro/Psych: Reports: Anxiety Musculoskeletal: Reports: Other (T 11-12 COMPRESSION FX) Cancer: Reports: None Last Menstrual Period: unknown Other Pertinent Past Medical History: POST OP SEPSIS WITH WOUND VAC.has IVC umbrella emilia - Surgical History General Surgical History: Reports: Orthopedic (T 11-12 COMPRESSION FX, POST OP SEPSIS WITH WOUND VAC), Back Surgery (T 11-12 COMPRESSION FX,), Other (bowel surgery with post op infection and wound vac(removed end of february 2016)), Unknown - Family History Family History: Reports: Unknown - Social History Smoking Status: Former smoker Hx Substance Use: No Alcohol Screening: None Physical Exam - Physical Exam Appearance: Ill-appearing, Thin Ill-appearing: Moderate Pain Distress: Moderate Eyes: ANA, EOMI, Conjunctiva clear ENT: Ears normal, Nose normal, Oropharynx normal Neck: Supple Respiratory: Airway patent, Breath sounds equal, Respirations nonlabored, Rhonchi Cardiovascular: RRR, Pulses normal, No rub, No murmur GI/: Soft, No masses, Tender Musculoskeletal: Normal strength, ROM intact, No edema, No calf tenderness Skin: Warm, Dry, Normal color Neurological: Sensation intact, Motor intact, Reflexes intact, Cranial nerves intact, Alert, Oriented Psychiatric: Anxious Interpretation - Radiology Interpretation Radiology Interpretation By: Radiologist Radiology Results: Positive Exam Interpreted: CT Scan (abdomen-right inflammation, with contrast shows pyelonephritis) Critical Care Note - Critical Care Note Total Time (mins): 20 Course - Course Hematology/Chemistry: 11/02/16 10:19 11/02/16 10:19 Orders, Labs, Meds: Lab Review 11/02/16 11/02/16 11/02/16 10:19 10:30 12:25 WBC 10.24 H RBC 2.82 L Hgb 9.1 L Hct 25.3 L MCV 89.7 MCH 32.3 H MCHC 36.0 H RDW Coeff of Maribeth 15.9 H Plt Count 36 L Immature Gran % (Auto) 0.0 Neut % (Auto) 64.8 Lymph % (Auto) 12.9 Dickens % (Auto) 20.5 H Eos % (Auto) 0.0 Baso % (Auto) 1.8 Immature Gran # (Auto) 0.0 Neut # 6.6 Lymph # 1.3 Dickens # 2.1 H Eos # 0.0 Baso # 0.2 Sodium 125 L Potassium 3.0 L Chloride 91 L Carbon Dioxide 21 L Anion Gap 16.0 BUN 6 L Creatinine 0.55 L Estimated GFR (MDRD) 109.00 BUN/Creatinine Ratio 10.90 Glucose 108 Calcium 8.5 Total Bilirubin 0.92 AST 13 L ALT 8 L Alkaline Phosphatase 197 H Total Protein 6.1 Albumin 3.0 L Globulin 3.1 Albumin/Globulin Ratio 0.97 Amylase 8 L Lipase < 4 L Procalcitonin 1.42 Urine Color Yellow Urine Clarity Cloudy Urine pH 6.0 Ur Specific [place] 1.020 Urine Protein 3+ Urine Glucose (UA) Negative Urine Ketones 3+ Urine Blood 2+ Urine Nitrite Negative Urine Bilirubin 1+ Urine Urobilinogen 0.2 Ur Leukocyte Esterase 1+ Urine Microscopic WBC 30-50 Ur Squamous Epith Cells Not present Ur Renal Epithelial Cell 0-2 Amorphous Sediment 1+ Urine Bacteria 2+ H. pylori IgG Antibody Negative Blood Type A POSITIVE Antibody Screen Negative Orders Category Date Time Status NPO REMINDER: IMAGING ONCE CARE 11/02/16 13:25 Completed Catheter [ED CATHETER INSERTION AND CARE] .ONCE EMERGENCY 11/02/16 12:08 Active ED IV/MEDIPORT/POWERPORT .ONCE EMERGENCY 11/02/16 10:06 Active AMYLASE Stat LAB 11/02/16 10:19 Completed BLOOD CULTURE Stat LAB 11/02/16 10:30 Received CBC W/ AUTO DIFF Stat LAB 11/02/16 10:19 Completed COMPREHENSIVE METABOLIC PANEL Stat LAB 11/02/16 10:19 Completed H. PYLORI SCREEN Stat LAB 11/02/16 10:19 Completed LIPASE Stat LAB 11/02/16 10:19 Completed PROCALCITONIN Stat LAB 11/02/16 10:19 Completed TYPE AND SCREEN Stat LAB 11/02/16 10:30 Completed URINALYSIS C & S IF INDICATED Stat LAB 11/02/16 12:25 Completed URINE CULTURE Stat LAB 11/02/16 13:03 Received 0.9 % Sodium Chloride [Saline Flush] MEDS 11/02/16 10:06 Active 1 syr IVF PRN PRN Ertapenem Sodium [Invanz] MEDS 11/02/16 15:01 Discontinued 1 gm .ROUTE .STK-MED ONE Ertapenem Sodium [Invanz] 1 gm MEDS 11/02/16 14:34 Discontinued 0.9 % Sodium Chloride [Sodium Chloride] 100 ml IV ONCE Lidocaine HCl [Uro-Jet] MEDS 11/02/16 12:08 Discontinued 10 ml MUCOUSMEMB ONCE STA Potassium Chloride [K-Dur] MEDS 11/02/16 11:22 Discontinued 40 meq PO ONCE STA Sodium Chloride 0.9% [Sodium Chloride] 1,000 ml MEDS 11/02/16 10:07 Discontinued IV 250 mls/hr CT ABDOMEN/PELVIS W CONTRAST Stat RADS 11/02/16 13:[address] ABDOMEN/PELVIS WO CONTRAST Stat RADS 11/02/16 10:06 Completed Medications Generic Name Dose Route Start Last Admin Trade Name Freq PRN Reason Stop Dose Admin Acetaminophen 650 mg 11/02/16 16:47 Tylenol PO Q4HR PRN pain or fever Acetaminophen/Hydrocodone Bitart 1 tab 11/02/16 16:47 [place] 5-325 PO Q6HR PRN Severe Pain Albuterol Sulfate 1 vial 11/02/16 22:00 Albuterol 0.083% Neb NEB RTQ8H [facility] Alendronate Sodium 70 mg 11/09/16 06:30 Fosamax PO WEEKLY FOSAMAX [facility] Aspirin 81 mg 11/03/16 08:00 Aspirin Ec PO DAILYWM [facility] Atorvastatin Calcium 10 mg 11/03/16 09:00 Lipitor PO DAILY [facility] Bisacodyl 10 mg 11/02/16 16:47 Dulcolax RC DAILY PRN CONSTIPATION Budesonide/Formoterol Fumarate 2 puff 11/02/16 21:00 Symbicort 160-4.5 Mcg Inhaler IH BID [facility] Cyclobenzaprine HCl 5 mg 11/02/16 16:58 Flexeril PO Q8HR PRN SPASMS Ferrous Sulfate 324 mg 11/02/16 21:00 Ferrous Sulfate PO BID [facility] Sodium Chloride 1,000 mls @ 40 mls/hr 11/02/16 17:00 11/02/16 16:55 Sodium Chloride IV 40 mls/hr .Q25H [facility]MOOTH Administration Ertapenem 1 gm/ Sodium 100 mls @ 100 mls/hr 11/03/16 09:00 Chloride IV DAILY [facility] Lisinopril 20 mg 11/03/16 09:00 Zestril PO DAILY [facility] Magnesium Hydroxide 30 ml 11/02/16 16:47 Milk Of Magnesia PO DAILY PRN Constipation Metoprolol Tartrate 25 mg 11/02/16 21:00 Lopressor PO BID [facility] Nicotine 1 patch 11/02/16 17:09 Nicoderm 21 Mg TD DAILY PRN nicotine withdrawal Pantoprazole Sodium 40 mg 11/02/16 17:00 Protonix PO BIDAC [facility] Potassium Chloride 40 meq 11/03/16 09:00 K-Dur PO DAILY [facility] Sodium Chloride 1 syr 11/02/16 10:06 Saline Flush IVF PRN PRN To flush IV Discontinued Medications Generic Name Dose Route Start Last Admin Trade Name Freq PRN Reason Stop Dose Admin Sodium Chloride 1,000 mls @ 250 mls/hr 11/02/16 10:07 11/02/16 13:05 Sodium Chloride IV 11/02/16 14:06 250 mls/hr .Q4H STA Administration Ertapenem 1 gm/ Sodium 100 mls @ 100 mls/hr 11/02/16 14:34 11/02/16 15:11 Chloride IV 11/02/16 15:33 100 mls/hr ONCE STA Administration Lidocaine HCl 10 ml 11/02/16 12:08 11/02/16 13:32 Uro-Jet MUCOUSMEMB 11/02/16 12:09 Not Given ONCE STA Potassium Chloride 40 meq 11/02/16 11:22 11/02/16 12:08 K-Dur PO 11/02/16 11:23 40 meq ONCE STA Administration Vital Signs: Temp Pulse Resp BP Pulse Ox 11/02/16 09:58 100.8 F H 92 H 20 193/94 H 97 Departure - Departure Time of Disposition: 17:18 Disposition: ADMITTED INPATIENT Discharge Problem: Pyelonephritis Condition: Stable Pt referred to PMD for follow-up: No (hospitalist) Allergies/Adverse Reactions: Allergies clonazepam [From Klonopin] Adverse Reaction (Severe, Verified 11/02/16 10:15) Hallucinations tuberculin, purified protein deriva [From Tubersol] Adverse Reaction (Verified 11/02/16 10:15) latex Adverse Reaction (Uncoded 09/12/13 15:58) Home Medications: Ambulatory Orders Acetaminophen [Tylenol] 650 mg PO Q4HR PRN 01/04/16 Magnesium Hydroxide [Milk of Magnesia] 30 ml PO DAILY PRN 01/04/16 Albuterol Sulfate 0.083% Neb [Albuterol 0.083% Neb] 1 vial NEB RTQ8H PRN Alendronate Sodium [Fosamax] 70 mg PO WEEKLY FOSAMAX 03/17/16 Aspirin [Adult Low Dose Aspirin EC] 81 mg PO DAILY 03/26/16 Potassium Chloride [K-Dur] 10 meq PO DAILY #30 tab 05/26/16 Bisacodyl [Dulcolax] 1 supp RC PRN PRN 06/13/16 Lisinopril 20 mg PO QAM 10/13/16 Ferrous Sulfate 325 mg PO BID #60 tablet 10/18/16 Pantoprazole Sodium [Protonix] 40 mg PO BID #60 tablet. 10/18/16
[2016-11-02 10:54] LABS: LIPASE < 4 U/L (8-78)
[2016-11-02 10:58] LABS: PLATELET COUNT 36 10^3/uL (140-440)
[2016-11-02] MEDS ORDERED: K-DUR PO STA (11:22)
--- NOTE | 2016-11-02 11:27 | CT ---
Examination: CT scan of the abdomen pelvis without intravenous contrast administration. Reason for study: Abdominal pain. Comparison: 10/13/2016. FINDINGS: Image interpretation is limited by the lack of intravenous contrast administration. There is mild basilar atelectasis. No focal consolidation or pleural effusion. Dense atherosclerotic plaque seen within the aorta and distal arterial vasculature. The gallbladder is unremarkable. Within the limitations of a noncontrasted study, the liver, spleen, and adrenal gl ands appear grossly unremarkable. The pancreas is diminutive. Nonobstructive stones are seen within the left renal collecting system. The right kidney is mildly hydronephrotic with surrounding inflammatory change. The ureter is not a ble to be traced completely to the ureterovesicular junction. IVC filter is in place. No focal small bowel dilatation. There is nonspecific inflammatory change i n the right lower quadrant inferior to the right kidney is incompletely evaluated without contrast a dministration. There is a small periumbilical hernia. No intra-abdominal free air. Diverticular disease is seen within the colon. No osteoblastic or oste olytic lesions. Degenerative disease is seen throughout the thoracic and lumbar spine. There are c hronic compression fractures in the mid-thoracic spine. Impression: 1. Unexpected finding. Right renal collecting system dilatation with likely mild hydronephrosis an d surrounding inflammatory change. No right-sided renal stones are seen. 2. Unexpected finding. Nonspecific inflammatory changes in the right lower quadrant inferior to th e right kidney. Differential is wide and includes inflammatory in infectious etiologies. If clinic al concern exists , recommend examination of the abdomen pelvis with intravenous contrast administra tion. 3. Similar appearing periumbilical hernia with the loop of bowel within. No evidence of obstructio n. 4. Diffusely demineralized osseous structures with stable compression fractures. Image interpretation was faxed to [facility] at 1123 hours on the day of exam.
[2016-11-02] MEDS ORDERED: URO-JET MUCOUSMEMB STA (12:08)
[2016-11-02 12:57] LABS: BILIRUBIN,URINE 1+ (NEGATIVE); KETONES,URINE 3+ (NEGATIVE); LEUKOCYTE ESTERASE ,URINE 1+ (NEGATIVE); NITRITE,URINE Negative (NEGATIVE); PROTEIN,URINE 3+ (NEGATIVE); URINE, BLOOD 2+ (NEGATIVE)
[2016-11-02 13:02] LABS: ADD URINE MICROSCOPIC YES
[2016-11-02 13:04] LABS: BACTERIA,URINE 2+ (NOT PRESENT)
--- NOTE | 2016-11-02 14:19 | CT ---
EXAM: CT Abdomen with contrast. CT Pelvis with contrast. HISTORY: Right renal inflammation. COMPARISON: Noncontrast CT earlier the same day. TECHNIQUE: Multiple axial images of the abdomen and pelvis were obtained following intravenous admi nistration of 75 mL of Omnipaque-300, low osmolar. Images were reformatted in the coronal plane. FINDINGS: Subsegmental atelectasis noted in the lung bases. Intramedullary nail present in the lef t femur. Degenerative changes present throughout the spine with mild compression deformities of T10 , T11, T12, L1 and L5. Old left pubic ring fractures noted. The liver, gallbladder, pancreas, spleen, and adrenal glands are unremarkable. Left kidney contains a nonobstructing calculi. Patchy areas of decreased cortical enhancement seen in the right kidney with mild adjacent inflammation. There is right urothelial enhancement/thickening. No hydronephros is identified. Urinary bladder is unremarkable. Uterus demonstrates normal contour. Diverticula present in the colon. Umbilical hernia containing a loop of bowel again seen. There is no evidence for bowel obstruction. No free fluid, free air or lymphadenopathy identified. Atheros clerotic calcifications are present with significant stenoses suspected in both common iliac arterie s, not well characterized due to. Poor opacification of the superficial femoral arteries bilaterall y, suspicious for occlusion. Profunda femoral arteries are patent. Inferior vena cava filter noted . IMPRESSION: 1. Right pyelonephritis. 2. Extensive atherosclerosis.
[2016-11-02] MEDS ORDERED: INVANZ 1 GM in SODIUM CHLORIDE 100 ML IV STA (14:34)
[2016-11-02] MEDS ORDERED: INVANZ ONE (15:01)
[2016-11-02] MEDS ORDERED: MILK OF MAGNESIA PO PRN (16:47)
[2016-11-02] MEDS ORDERED: NORCO 5-325 PO PRN (16:47)
[2016-11-02] MEDS ORDERED: NON-FORMULARY MEDICATION (Cyclobenzaprine Hcl [Cyclobenzaprine Hcl] 5 MG) PO PRN ×22 (16:47)
[2016-11-02] MEDS ORDERED: TYLENOL PO PRN (16:47)
[2016-11-02] MEDS ORDERED: DULCOLAX RC PRN (16:47)
[2016-11-02] MEDS ORDERED: FLEXERIL PO PRN (16:58)
[2016-11-02] MEDS ORDERED: SODIUM CHLORIDE 1,000 ML IV SCH (17:00)
[2016-11-02 17:05] VITALS: BMI 18.2
[2016-11-02] MEDS ORDERED: NICODERM 21 MG TD PRN (17:09)
[2016-11-02] MEDS: PROTONIX PO SCH (17:46)
[2016-11-02] MEDS ORDERED: INFUVITE ADULT IV ONE (20:13)
[2016-11-02] MEDS: INFUVITE ADULT 10 ML in D5%-NS-KCL 20 MEQ/L IV SOL 1,000 ML IV SCH (20:16)
[2016-11-02] MEDS: ZOFRAN 4 MG/2 ML IVP PRN (20:40)
[2016-11-02] MEDS: DILAUDID 1 MG/ML SYRINGE IVP PRN (20:40)
[2016-11-02] MEDS: SYMBICORT 160-4.5 MCG INHALER IH SCH (20:41)
[2016-11-02] MEDS: FERROUS SULFATE PO SCH ×2 (20:41→20:43)
[2016-11-02] MEDS: LOPRESSOR PO SCH (20:42)
[2016-11-02] MEDS ORDERED: NON-FORMULARY MEDICATION (Ferrous Sulfate [Ferrous Sulfate] 325 MG) PO SCH ×22 (21:00)
[2016-11-02] MEDS: ALBUTEROL 0.083% NEB NEB SCH (22:50)
[2016-11-03] MEDS: DILAUDID 1 MG/ML SYRINGE IVP PRN ×5 (01:23→20:11)
[2016-11-03] MEDS: ALBUTEROL 0.083% NEB NEB SCH ×3 (05:18→19:08)
[2016-11-03 05:30] LABS: BASOPHILS # (AUTO) 0.2 K/uL (0-0.2); BASOPHILS % (AUTO) 1.7 % (0.0-3.0); HEMATOCRIT 22.3 % (37.0-47.0); IMMATURE GRANULOCYTE % (AUTO) 6.6 % (0.0-5.0); LYMPHOCYTES # (AUTO) 1.8 K/uL (0.60-3.4); MEAN CORPUSCULAR HEMOGLOBIN 32.4 pg (27.0-31.0); MEAN CORPUSCULAR HGB CONC 35.9 (31.8-35.4); MEAN CORPUSCULAR VOLUME 90.3 fl (81.0-99.0); MONOCYTES # (AUTO) 2.4 K/uL (0.4-2.0); MONOCYTES % (AUTO) 23.1 (0-10); NEUTROPHILS # (AUTO) 5.2 K/ul (2.0-6.9); NEUTROPHILS % (AUTO) 50.6; PLATELET COUNT 33 10^3/uL (140-440); RED BLOOD COUNT 2.47 10^6/ul (4.20-5.40); WHITE BLOOD COUNT 10.25 K/ul (4.6-10.2)
[2016-11-03] MEDS: PROTONIX PO SCH ×2 (05:35→16:47)
[2016-11-03] MEDS: ZOFRAN 4 MG/2 ML IVP PRN ×3 (05:42→20:10)
[2016-11-03 05:43] LABS: ALBUMIN 2.7 g/dL (3.4-5.0); ALBUMIN/GLOBULIN RATIO 0.93; ANION GAP 11.4; BILIRUBIN,TOTAL 0.7 mg/dL (0.00-1.20); BUN/CREATININE RATIO 11.76; CALCIUM 7.9 mg/dL (8.2-10.2); CREATININE 0.51 mg/dL (0.60-1.30); POTASSIUM 3.4 mmol/L (3.5-5.10); TOTAL PROTEIN 5.6 g/dL (5.8-8.1)
[2016-11-03] MEDS ORDERED: INFUVITE ADULT IV ONE (06:19)
[2016-11-03] MEDS: SYMBICORT 160-4.5 MCG INHALER IH SCH ×2 (08:00→20:14)
[2016-11-03] MEDS: INFUVITE ADULT 10 ML in D5%-NS-KCL 20 MEQ/L IV SOL 1,000 ML IV SCH ×2 (08:01→19:13)
[2016-11-03] MEDS: INVANZ 1 GM in SODIUM CHLORIDE 100 ML IV SCH (08:43)
[2016-11-03] MEDS: ZESTRIL PO SCH (08:44)
[2016-11-03] MEDS: LOPRESSOR PO SCH ×2 (08:44→20:14)
[2016-11-03] MEDS: ASPIRIN EC PO SCH (08:44)
[2016-11-03] MEDS: LIPITOR PO SCH (08:44)
[2016-11-03] MEDS: FERROUS SULFATE PO SCH ×3 (08:44→20:55)
[2016-11-03] MEDS ORDERED: K-DUR PO SCH (09:00)
[2016-11-03] MEDS ORDERED: NON-FORMULARY MEDICATION (Lisinopril [Lisinopril] 20 MG) PO SCH ×22 (09:00)
[2016-11-03] MEDS ORDERED: LOVENOX ONE (21:24)
[2016-11-03] MEDS ORDERED: LOVENOX SUBCUT SCH (21:30)
[2016-11-04] MEDS: DILAUDID 1 MG/ML SYRINGE IVP PRN ×4 (00:21→20:55)
[2016-11-04 05:21] LABS: HEMATOCRIT 21.2 % (37.0-47.0); HEMOGLOBIN 7.2 g/dl (12.0-16.0); MEAN CORPUSCULAR HEMOGLOBIN 31.6 pg (27.0-31.0); PLATELET COUNT 37 10^3/uL (140-440); RED BLOOD COUNT 2.28 10^6/ul (4.20-5.40); WHITE BLOOD COUNT 13.12 K/ul (4.6-10.2)
[2016-11-04] MEDS: ALBUTEROL 0.083% NEB NEB SCH ×2 (05:40→14:02)
[2016-11-04] MEDS: PROTONIX PO SCH ×2 (05:54→17:20)
[2016-11-04 06:08] LABS: ANION GAP 11.2; CREATININE 0.4 mg/dL (0.60-1.30); POTASSIUM 5.2 mmol/L (3.5-5.10)
[2016-11-04 06:09] LABS: ALBUMIN 2.9 g/dL (3.4-5.0); ALBUMIN/GLOBULIN RATIO 1.16; BILIRUBIN,TOTAL 0.8 mg/dL (0.00-1.20); CALCIUM 7.9 mg/dL (8.2-10.2); TOTAL PROTEIN 5.4 g/dL (5.8-8.1)
[2016-11-04 06:52] LABS: BASOPHILS # (AUTO) 0.2 K/uL (0-0.2); BASOPHILS % (AUTO) 1.4 % (0.0-3.0); IMMATURE GRANULOCYTE % (AUTO) 0.9 % (0.0-5.0); LYMPHOCYTES # (AUTO) 3.1 K/uL (0.60-3.4); LYMPHOCYTES % (AUTO) 23.3 (10.0-50.0); MONOCYTES # (AUTO) 2.7 K/uL (0.4-2.0); MONOCYTES % (AUTO) 20.6 (0-10); NEUTROPHILS # (AUTO) 6.3 K/ul (2.0-6.9); NEUTROPHILS % (AUTO) 47.8
[2016-11-04] MEDS: INFUVITE ADULT 10 ML in DEXTROSE 5%-NS IV SOLUTION 1,000 ML IV SCH ×2 (07:40→22:23)
[2016-11-04] MEDS: LIPITOR PO SCH (08:01)
[2016-11-04] MEDS: SYMBICORT 160-4.5 MCG INHALER IH SCH ×2 (08:01→20:33)
[2016-11-04] MEDS: INVANZ 1 GM in SODIUM CHLORIDE 100 ML IV SCH (08:01)
[2016-11-04] MEDS: ASPIRIN EC PO SCH (08:01)
[2016-11-04] MEDS: ZESTRIL PO SCH (08:01)
[2016-11-04] MEDS: LOPRESSOR PO SCH ×2 (08:02→20:33)
[2016-11-04] MEDS: FERROUS SULFATE PO SCH ×2 (08:02→20:33)
[2016-11-04] MEDS ORDERED: LASIX IVP STA (17:03)
[2016-11-04] MEDS ORDERED: LASIX ONE (17:06)
[2016-11-04 19:39] VITALS: BP 141/83; TEMP 98.6
[2016-11-04] MEDS ORDERED: LOVENOX SUBCUT SCH (21:00)
--- NOTE | 2016-11-07 14:45 | HP ---
CHIEF COMPLAINT: Abdominal pain. SOURCE OF HISTORY: Patient. HISTORY OF PRESENT ILLNESS: The patient had been complaining of abdominal pain for the last two to three days, mostly in the lower abdomen with anorexia. The patient had not eaten anything for the last two days because of exacerbation of the pain. The patient was seen at the emergency room and the patient had temperature of 100.[address] scan of the abdomen and pelvis initially without contrast and then followed by contrast showed perinephric stranding with a diagnosis of pyelonephritis. Emergency room physician, Dr. Tenorio, initially contacted me with regards to the problem and after a few exchanges of ideas he felt that maybe this patient should go to another facility and they proceeded to talk to the hospitalist at [facility] and they discussed the case and I believe with Dr. Donald and Dr. Donald told him that he would treat her like she has a pyelonephritis and could be accomplished through this facility, so he did again call me back and I said, "Yes, we can admit her". She was then admitted to my service. PAST PERSONAL HISTORY: The patient had previous cataract surgery, right side, abdominal surgery 07/07/2016 secondary to intestinal obstruction, history of colitis, history of stress and urge incontinence. History of pelvic fracture, history of compression fractures T10 and L1. Several surgeries to the right arm. Thyroidectomy. History of depression, plus anxiety. History of chronic tobacco use, stopped 2 1/2 years ago. FAMILY HISTORY: No significant diseases. Father from an accident and mother of old age at 88. SOCIAL HISTORY: The patient is and resides alone at home. Home Health does come and visit her. The daughter comes home and sees her after work. MEDICATIONS: Prior to this admission. Tylenol 650 mg every four hours prn Hydrocodone/Tylenol 7.5/325 mg one every 4 hours prn for pain Milk of Magnesia 30 cc every day as needed Flexeril 10 mg every 8 hours Vitamin D3 1000 IU daily Albuterol 0.083% one vial every 8 hours prn for nebulization Fosamax 70 mg daily Aspirin 81 mg daily Lisinopril 20 mg daily Lipitor 10 mg daily Symbicort 160/4.5 mcg two puffs twice a day Lasix 20 mg daily KCL 10 mEq daily Prilosec 20 mg daily Metoprolol Tartrate 25 mg twice a day Dulcolax 10 mg suppository prn ALLERGIES: Clonazepam and yet this patient is taking Clonazepam, Tuberculin PPD and latex. REVIEW OF SYSTEMS: CONSTITUTIONAL: The patient is alert and responsive, afebrile with no shaking chills and weak. She closes her eyes most of the time. PHYSICAL EXAMINATION: GENERAL: 71 year old female admitted with abdominal pain. VITAL SIGNS: At 9:58 with temperature 100.8, pulse 92, blood pressure 193/94, respiratory rate 20, oxygen saturation 97. HEAD: Unremarkable. FACE: Symmetrical and equal with no facial weakness. No significant tenderness to palpation in the frontal or maxillary sinus areas. EYES: Pupils equal/reactive to light about 3 mm in size. Conjunctivae pale. Sclerae not icteric. MOUTH: Unremarkable. THROAT: No inflammation, no tumors or exudate. NECK: No masses. No bruit. No tenderness. CHEST: Somewhat kyphotic and expanding well. LUNGS: Breath sounds are heard in both sides, diminished with rales on both lung gu at the bases. HEART: Audible and regular with good tones and a tight systolic ejection apical murmur. ABDOMEN: Flat to scaphoid with tenderness mostly in the right side of the abdomen. Bowel sounds are active. No masses palpable. EXTERNAL GENITALIA: Not examined. RECTAL: Not performed. LOWER EXTREMITIES: Essentially symmetrical and equal and cold to touch. Anterior and posterior tibials are absent, but no cyanosis of the feet or toes. UPPER EXTREMITIES: Symmetrical and equal. ASSESSMENT: 1. PYELONEPHRITIS, RIGHT SIDE 2. ABNORMAL URINALYSIS 3. APICAL SYSTOLIC MURMUR 4. MODERATE TO SEVERE ANEMIA 5. CONGESTIVE HEART FAILURE BY HISTORY 6. VITAMIN D DEFICIENCY 7. HISTORY OF RIGHT HEMICOLECTOMY 8. HISTORY OF COPD 9. HISTORY OF CHRONIC TOBACCO USE AND ABUSE, STOPPED 2 PLUS YEARS AGO 10. HISTORY OF PELVIC FRACTURE 11. HISTORY OF COMPRESSION FRACTURE T10-L1 12. HISTORY OF MULTIPLE SURGERIES OF RIGHT ARM 13. HISTORY OF CATARACT EXTRACTION RIGHT SIDE 14. GENERALIZED DEBILITY PROGNOSIS: Poor. MTDD
--- NOTE | 2016-11-07 15:35 | DS ---
TRANSFERRED TO [facility] HOSPITALIST PATIENT IDENTIFICATION: 71 year old female was admitted to the hospital via the emergency room because of lower abdominal pain two to three days duration with no oral intake in the last two days. The patient had not had any vomiting, but food or drinks make her sick. The patient's urinalysis was abnormal. The patient's temperature was 100.8 on presentation. Blood pressure 193/94, pulse 97. HOSPITAL COURSE: The patient on initial examination would open her eyes, but after answering the question, she closes it again and she is in a position. She is complaining of abdominal pain. Her lungs had some rales at the bases and the chest is kyphotic. The heart is audible and somewhat irregular with a loud systolic apical murmur. The patient was diagnosed with aortic stenosis in the past. The patient was given Ertapenem 1 gram IV beginning at the emergency room and daily. NicoDerm 21 mg patch was also initiated. The Protonix 40 mg twice daily was continued. Lopressor 25 mg twice a day was continued, as well as Ferrous Sulfate. Symbicort inhaler was also continued as well as the Albuterol. Lovenox 30 mg subcutaneously was given daily, as well as IV fluids with electrolyte replacement and multivitamin. The patient's temperature more or less had returned to normal and the Hydrocodone with Tylenol was discontinued and the patient was given Dilaudid 1 mg every three hours prn for pain and the Fosamax also was discontinued. The patient's temperature at 7:37 p.m. was 98.6 and the pulse had risen to 120, but the patient is in pain and the Dilaudid was given. Blood pressure 141/83, respiratory rate 26. She is receiving 2 liters of oxygen per nasal and the oxygen saturation was 96 at 6:18 p.m. No Cope catheter was inserted since she has some latex issues. We do not have the Cope catheter that is nonlatex. I had discussed earlier with the daughter about transferring her mother to another facility, [place] or [place]. She was agreeable. I made arrangements and discussed the case with Dr. Candy Cotton at [facility] a hospitalist. She accepted the patient into her services. I did notify the daughter, Ms. Avani Whittington, by phone and I told her that she is going to [facility]. She told me that she is not in town and she is our on business. She mentioned about her . I did inform her that somebody may have to be there to provide some information. The patient, today, is alert and responsive, but doesn't carry a conversation. LUNGS: Has a few rales at the bases. No wheezing. Her hemoglobin went down to 7.2 and so a transfusion was carried consisting of 2 units. Lasix 20 mg IV was given in between the 2 units. Sodium is 123, potassium 5.2 and chloride is 98. The GFR is 157, alkaline phosphatase has risen from 197 to 232. BNP is 176. The patient's immature cells/bands was 0 on admission and 6.6 bands on 11/03/2016 and 0.9 today. The platelet count remained low at 36 on admission, 33 on the 11/03/2016 and 3700 today, 2016. The patient's monocytes remained elevated. This patient's WBC on previous admission, 20 days ago was low, as well as the hemoglobin and hematocrit. The platelet count also was low during this admission about 40, 000. Blood cultures remained negative, but the urine culture did grow e.coli, ESBL negative and sensitive to Ertapenem, Imipenem and Tobramycin. The patient is kept on Ertapenem 1 gram IV daily. The patient just before transfer was complaining of pain and 1 mg Dilaudid was given. LUNGS: The right lung appears to be clear with a few rales at the left. No wheezing. HEART: Heart is audible and slightly tachycardic. She does have a loud murmur at the apical area. ABDOMEN: nub card tender, but no muscular rigidity. Bowel sounds are active. It is now 9:15 p.m. and the patient is in the process of being transferred. The nurses already endorsed the case. FINAL DIAGNOSES: 1. RIGHT PYELONEPHRITIS, PROBABLY SEPSIS 2. URINE CULTURE E.COLI, ESBL NEGATIVE 3. PANCYTOPENIA 4. HISTORY OF COPD, SEVERE 5. HISTORY OF SEVERE ANEMIA AND PANCYTOPENIA 6. HISTORY OF INTESTINAL RESECTION 12/25/2015 AT [facility] 7. HISTORY OF CONGESTIVE HEART FAILURE 8. HISTORY OF VITAMIN D DEFICIENCY 9. HISTORY OF COMPRESSION FRACTURES T10 AND L1 10. HISTORY OF PELVIC FRACTURE 11. HISTORY OF CHRONIC TOBACCO USE AND ABUSE PROGNOSIS: Poor. MTDD
[2016-11-09] MEDS ORDERED: FOSAMAX PO SCH (06:30)
--- NOTE | 2016-11-09 08:07 | PN ---
DATE OF VISIT: 11/03/2016 The patient is alert and responsive. VITAL SIGNS: At 5:24 p.m., temperature 97.1, pulse 91, blood pressure 134/82, respiratory rate 18, oxygen saturation 97 at 2 liters. LUNGS: Still has rales in both lung gu, lower. HEART: Audible and regular with a systolic ejection murmur apical. ABDOMEN: The abdomen is sieve grader tender, but somewhat better. The patient appears pale. Hemoglobin today is down to 8 from 9.1 on admission. WBC is the same at 10,250. MCV is 90.3, MCH 32.4. This patient most likely has some B12 deficiency secondary to absorption problem, partly PPI plus surgery. This patient will be given B12 injection while in the hospital. The monocytes are high at 23.1, 0-10 normal. If this patient's hemoglobin and hematocrit continues to drop lower, that consideration for transfusion will be made. Do decision today. The platelet count of this patient is markedly low. MTDD
--- NOTE | 2016-11-09 08:35 | PN ---
DATE OF VISIT: 11/04/16 The patient is alert and responsive, but has to close her eyes again. She did eat some, although not as much. She is getting IV fluids with Dextrose. Her oral intake yesterday was very good at 1710 cc. VITAL SIGNS: Today at 3:08 p.m., temperature 98.9, pulse 80, blood pressure 134 /74, respiratory rate 19. LABS: WBC is up to 13,120 and the hemoglobin is down to 7.2, hematocrit 21.2, MCV 93, MCH 31.6. RDW is 16.6. Platelet count is 37,000. Her platelet count was normal on 06/19/2016 at 140. She was severely anemic then with a lower WBC. LUNGS: Still has rales. We will obtain a CT scan of the chest to have a better picture rather than a portable chest x-ray. This patient is not able to stand straight. 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 I will try to get in touch with the daughter. It is listed as Dr. Longoria as the primary care provider. The patient does see Dr. Reyes. I told the daughter that I would try to transfer her to a facility at [facility], although [facility] has refused a number of previous admissions where they tried to transfer her to [facility]. I will try [facility]. I ask how far does she want to go and she did not give me an answer whether she was willing to go to [facility]. She has told me to try [facility] and see if she can be transferred there. I will try to do that today. Plus I told her and maybe realistically it might be Sunday. I also asked her about full resuscitation and she said that it still is a full code. I did advise her that if one would do a full resuscitation with compression that a broken rib might bleed and would probably not stop bleeding with a platelet count of 37,000. The patient's general condition is weak and frail at this time and had been also in the past. JALIL
--- NOTE | 2016-11-09 08:40 | PN ---
DATE OF VISIT: 11/04/16 AT 9:45 P.M. I did call again Mrs. Avani Whittington, the daughter of the patient to inform her that her mother is now leaving the hospital and going to [facility] in [place]. I had not seen a relative come to the hospital. I let the phone ring for some time, however, I did not get any answer. I called her from the hospital phone. She did answer the phone twice earlier. JALIL
== END 2016-11-04 21:35 | disposition short-term general hospital (02) | DRG 690 ==
LOC: ED 09:54 → MEDSURG B 16:02
PROVIDERS: ADMIT General Practice; ATTEND General Practice
PROC: 30233N1 Transfusion of Nonautologous Red Blood Cells into Peripheral Vein, Percutaneous Approach (ICD-10-PCS; principal; 2016-11-04)
PROC: 30233N1 Transfusion of Nonautologous Red Blood Cells into Peripheral Vein, Percutaneous Approach (ICD-10-PCS; 2016-11-04)
DX: N12 Tubulo-interstitial nephritis, not specified as acute or chronic (principal); D61.818 Other pancytopenia; R82.71 Bacteriuria; B96.20 Unspecified Escherichia coli [E. coli] as the cause of diseases classified elsewhere; D50.0 Iron deficiency anemia secondary to blood loss (chronic); I10 Essential (primary) hypertension; R09.89 Other specified symptoms and signs involving the circulatory and respiratory systems; I50.9 Heart failure, unspecified; R01.1 Cardiac murmur, unspecified; J44.9 Chronic obstructive pulmonary disease, unspecified; E55.9 Vitamin D deficiency, unspecified; Z79.899 Other long term (current) drug therapy; Z90.49 Acquired absence of other specified parts of digestive tract; Z86.718 Personal history of other venous thrombosis and embolism; Z87.891 Personal history of nicotine dependence; Z16.35 Resistance to multiple antimicrobial drugs
CPT/HCPCS: 36415; 36430; 80053; 81001; 82150; 83690; 83880; 84145; 85025; 86677; 86850; 86900; 86922; 87040; 87086; 87186; 94640; 96361; 96365; 99223; 99232; 99239; 99284

== ENCOUNTER 2016-11-04 21:46 | Outpatient (CLI) | END 2016-11-04 21:47 | disposition home or self-care (01) | LOC: AMBL 21:46 | PROVIDERS: ATTEND Family Medicine | DX: N12 Tubulo-interstitial nephritis, not specified as acute or chronic (principal); A41.9 Sepsis, unspecified organism ==